=== PATIENT | female | born 1975 | race Two or more races ===

== ENCOUNTER → 2020-01-20 14:14 | Outpatient (BNVA) | payer BC, SELFPAY | PROVIDERS: PCP Internal Medicine; Visit Provider Orthopaedic Surgery | DX: Z76.89 Persons encountering health services in other specified circumstances (principal) ==

== ENCOUNTER 2020-01-20 14:15 | Outpatient (REF) | payer BC, SELFPAY ==
--- NOTE | 2020-01-20 14:16 | XR_ITS ---
EXAMINATION: XR AP STANDING VIEW BOTH KNEES. XR KNEE, RIGHT CLINICAL INFORMATION: Right knee pain COMPARISON: None TECHNIQUE: AP standing view both knees. Lateral and sunrise views of the right knee. FINDINGS: No joint space narrowing. No joint effusion. No fracture or focal osseous lesion. IMPRESSION: Unremarkable study.
== END 2020-01-20 14:16 | disposition home or self-care (01) ==
LOC: HO.XRAY 14:15
PROVIDERS: Visit Provider Orthopaedic Surgery
DX: S89.91XA Unspecified injury of right lower leg, initial encounter (principal)
CPT/HCPCS: 73560; 73565

== ENCOUNTER 2020-03-23 11:00 | Outpatient (RCR) | payer BC, SELFPAY ==
--- NOTE | 2020-03-02 12:39 | MHC.PT.EP ---
[facility] [place] Office [place] Office [place] Office [address] Luis Manuel Cobb [address] [phone] F: [phone] F: [phone] F: [phone] F: [phone] Physical Therapy Plan of Care Date of Evaluation: 03/02/20 Date of Surgery: NA Diagnosis: UNSPECIFIED INJURY OF R LOWER LEG Assessment: Pt IS 44 YO F REFERRED TO PT FROM DR PADILLA WITH R LE INJURY. Pt REPORTS HX OF R KNEE PROBLEMS (HAS HAD PT IN PAST WITH RELIEF) AND IN SEPTEMBER WAS MOVING A COUCH TO CLEAN BEHIND IT AND THEN USED KNEE TO TRY TO MOVE IT MAKE IN TO PLACE AND FELT LIKE KNEE STRAIGHTENED OUT ALL THE WAY CAUSING SIGNIFICANT PAIN. SWELLING INITIALLY. TO MD, RELIEF WITH ALLEVE AND ICE, SAW ORTHO (XRAY R KNEE NEG) AND REFERRED TO PT. PRESENTS WITH SXS CONSISTENT WITH MENISCAL INJURY. Pt WITH LIMITED ROM R KNEE, DECREASED STRENGTH (REPORTS AT TIME OF INIT INJURY UNABLE TO PERF SLR...WAS ABLE TO PERF TODAY DURING INIT EVAL.. Pt WITH TTP LAT JT LINE AND ITB WITH LAT TILT PATELLA NOTED. Pt WITHOUT LIMP WITH GT, BUT DOES HAVE PES PLANUS WITH GT AND PRONATION NOTED WITH SQUAT (DOES NOT WEAR ARCH SUPPORTS, BUT AWARE OF FLAT FEET . 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 Pt HAD STOPPED WORKING OUT BACK IN SEPTEMBER WHEN SHE INJURED HER KNEE, BUT RECENTLY STARTED WORKING OUT AGAIN. Pt SHOULD BENFIT FROM PT TO HELP DECREASE KNEE PAIN AND HELP IMPROVE OVERALL STRENGTH, ROM AND FUNCTIONAL MOBILITY. Frequency and Duration: The patient will be seen 2X/WK THIS FIRST WEEK THEN TO TRY 1X/WK (35 DOLLAR COPAY) Short Term Goals: INCREASED R KNEE ROM 0-120 INCREASED AWARENESS KNEE CARE Pt TO USE KT/ARCH SUPPORTS WITH RELIEF Care Home Goals: I HEP WITH DC EX PLAN DECREASED R KNEE PAIN AT LEAST 50% WITH ADLS IMPROVED LEFI Treatment Plan: Modalities to reduce pain, spasms and effusion. Manual therapy to restore motion and function. Therapeutic exercise to improve strength and flexibility. Neuromuscular re-education for posture and balance. Therapeutic activities to return to functional activities of daily living. Please sign and return to therapist. Thank you for your referral.
--- NOTE | 2020-03-02 12:40 | MHC.PT.EP ---
[facility] [place] Office [place] Office [place] Office [address] Luis Manuel Cobb [address] [phone] F: [phone] F: [phone] F: [phone] F: [phone] Physical Therapy Plan of Care Date of Evaluation: 03/02/20 Date of Surgery: NA Diagnosis: UNSPECIFIED INJURY OF R LOWER LEG Assessment: Pt IS 44 YO F REFERRED TO PT FROM DR PADILLA WITH R LE INJURY. Pt REPORTS HX OF R KNEE PROBLEMS (HAS HAD PT IN PAST WITH RELIEF) AND IN SEPTEMBER WAS MOVING A COUCH TO CLEAN BEHIND IT AND THEN USED KNEE TO TRY TO MOVE IT MAKE IN TO PLACE AND FELT LIKE KNEE STRAIGHTENED OUT ALL THE WAY CAUSING SIGNIFICANT PAIN. SWELLING INITIALLY. TO MD, RELIEF WITH ALLEVE AND ICE, SAW ORTHO (XRAY R KNEE NEG) AND REFERRED TO PT. PRESENTS WITH SXS CONSISTENT WITH MENISCAL INJURY. Pt WITH LIMITED ROM R KNEE, DECREASED STRENGTH (REPORTS AT TIME OF INIT INJURY UNABLE TO PERF SLR...WAS ABLE TO PERF TODAY DURING INIT EVAL.. Pt WITH TTP LAT JT LINE AND ITB WITH LAT TILT PATELLA NOTED. Pt WITHOUT LIMP WITH GT, BUT DOES HAVE PES PLANUS WITH GT AND PRONATION NOTED WITH SQUAT (DOES NOT WEAR ARCH SUPPORTS, BUT AWARE OF FLAT FEET . 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 Pt HAD STOPPED WORKING OUT BACK IN SEPTEMBER WHEN SHE INJURED HER KNEE, BUT RECENTLY STARTED WORKING OUT AGAIN. Pt SHOULD BENFIT FROM PT TO HELP DECREASE KNEE PAIN AND HELP IMPROVE OVERALL STRENGTH, ROM AND FUNCTIONAL MOBILITY. Frequency and Duration: The patient will be seen 2X/WK THIS FIRST WEEK THEN TO TRY 1X/WK (35 DOLLAR COPAY) Short Term Goals: INCREASED R KNEE ROM 0-120 INCREASED AWARENESS KNEE CARE Pt TO USE KT/ARCH SUPPORTS WITH RELIEF Nursing Home Goals: I HEP WITH DC EX PLAN DECREASED R KNEE PAIN AT LEAST 50% WITH ADLS IMPROVED LEFI Treatment Plan: Modalities to reduce pain, spasms and effusion. Manual therapy to restore motion and function. Therapeutic exercise to improve strength and flexibility. Neuromuscular re-education for posture and balance. Therapeutic activities to return to functional activities of daily living. Please sign and return to therapist. Thank you for your referral.
== END 2020-05-11 15:29 | disposition other institution (70) ==
LOC: HO.PTWFD 11:00
PROVIDERS: Visit Provider Orthopaedic Surgery
DX: S89.91XD Unspecified injury of right lower leg, subsequent encounter (principal)
CPT/HCPCS: 97110; 97140; 97161; 97530

== ENCOUNTER 2022-01-25 13:04 | Outpatient (REF) | payer BC, SELFPAY ==
[2022-01-25 13:55] LABS: Appearance Urine Clear; Color Urine Yellow; Glucose Urine UA Negative (Negative); Leukocyte Esterase Urine Moderate (2+) (Negative); Nitrite Urine Negative (Negative); Specific Gravity - Urine 1.015 (1.005-1.025); UMIC TRIGGER UACC YES; Urine Blood Moderate (2+) (Negative); Urine Ketones Negative (Negative); Urine Protein Negative (Neg-Trace)
[2022-01-25 14:08] LABS: Bacteria Urine Trace (None Seen); Hyaline Casts Urine 0-2 /LPF (0-2); RBC Urine >20 /HPF (0-2); UACC Culture Trigger YES; WBC Urine >50 /HPF (0-5)
== END 2022-01-25 13:05 | disposition home or self-care (01) ==
LOC: HO.LAB 13:04
PROVIDERS: PCP Internal Medicine; Visit Provider Internal Medicine
DX: R30.0 Dysuria (principal)
CPT/HCPCS: 81001; 87086; 87088; 87186

== ENCOUNTER 2022-04-17 12:38 | Outpatient (REF) | payer BC, SELFPAY ==
[2022-04-17 13:40] LABS: Estimated Average Glucose 97 mg/dL
[2022-04-17 14:56] LABS: Anion Gap 11 (12-20); Blood Urea Nitrogen 12 mg/dL (9-16); Calcium 9.4 mg/dL (8.4-10.2); Carbon Dioxide 26 mmol/L (22-29); Chloride 105 mmol/L (96-108); Estimated Glomerular Filt Rate > 60; Glucose Random 87 mg/dL (60-115); Potassium 4.3 mmol/L (3.3-5.1); Sodium 138 mmol/L (135-145)
== END 2022-04-17 12:39 | disposition home or self-care (01) ==
LOC: HO.LAB 12:38
PROVIDERS: PCP Internal Medicine; Visit Provider Internal Medicine
DX: Z13.89 Encounter for screening for other disorder (principal)
CPT/HCPCS: 36415; 80048; 83036

== ENCOUNTER 2022-07-16 14:18 | Outpatient (REF) | payer BC, SELFPAY ==
[2022-07-16 14:47] LABS: Appearance Urine Clear; Color Urine Yellow; Glucose Urine UA Negative (Negative); Leukocyte Esterase Urine Negative (Negative); Nitrite Urine Negative (Negative); PH 5.5 (5.0-9.0); Urine Blood Negative (Negative); Urine Ketones Negative (Negative); Urine Protein Negative (Neg-Trace)
== END 2022-07-16 14:19 | disposition home or self-care (01) ==
LOC: HO.LAB 14:18
PROVIDERS: PCP Internal Medicine; Visit Provider Internal Medicine
DX: R30.0 Dysuria (principal)
CPT/HCPCS: 81003; 87086; 87147

== ENCOUNTER 2022-12-13 15:01 | Outpatient (REF) | payer BC, SELFPAY ==
[2022-12-13 15:21] LABS: MANUAL DIFF FLAG NO
[2022-12-13 15:54] LABS: Basophils Percent Auto 0.5 % (0-2); Eosinophils Absolute Auto 0.1 X10*3/uL (0.0-0.4); Eosinophils Percent Auto 1.7 % (0-4); Hematocrit 39.9 % (37.0-47.0); Hemoglobin 12.8 g/dl (12.0-16.0); Imm Gran Abs Auto 0.02 X10*3/uL (0.00-0.03); Imm Gran Pct Auto 0.3 % (0.0-0.4); Lymphocytes Absolute Auto 1.7 X10*3/uL (1.2-4.9); Lymphocytes Percent Auto 27.5 % (20-40); Mean Corpuscular HGB Conc 32.1 g/dl (31.0-35.0); Mean Corpuscular Hemoglobin 29.5 pg (27.0-33.0); Mean Corpuscular Volume 91.9 fL (80.0-98.0); Mean Platelet Volume 10.2 fL (9.4-12.3); Monocytes Absolute Auto 0.4 X10*3/uL (0.1-1.2); Monocytes Percent Auto 7.2 % (2-11); Neutrophils Absolute Auto 3.8 x10*3/uL (2.0-8.3); Neutrophils Percent Auto 62.8 % (45-73); Platelet Count 235 X10*3/uL (160-400); Red Blood Count 4.34 X10*6/uL (4.20-5.50); Red Cell Distribution Width 13.4 % (11.0-16.0)
[2022-12-13 16:31] LABS: Erythrocyte Sedimentation Rate 16 MM/HR (0-20)
[2022-12-13 17:19] LABS: Alanine Aminotransferase 16 U/L (0-31); Albumin Level 3.6 g/dL (3.5-5.0); Alkaline Phosphatase 57 U/L (39-117); Anion Gap 13 (12-20); Aspartate Amino Transferase 16 U/L (5-31); Bilirubin Total 0.3 mg/dL (0.0-1.0); Blood Urea Nitrogen 17 mg/dL (9-16); C Reactive Protein 0.56 mg/dL (< or = 0.50); Calcium 9.4 mg/dL (8.4-10.2); Carbon Dioxide 23 mmol/L (22-29); Chloride 106 mmol/L (96-108); Estimated Glomerular Filt Rate > 60; Glucose Random 79 mg/dL (60-115); Potassium 4.2 mmol/L (3.3-5.1); Sodium 138 mmol/L (135-145); Total Protein 6.9 g/dL (6.5-8.0)
[2022-12-13 17:35] LABS: Free T4 (Free Thyroxine) 1.01 ng/dL (0.71-1.85); Thyroid Stimulating Hormone 0.83 uIU/mL (0.32-4.0)
== END 2022-12-13 15:02 | disposition home or self-care (01) ==
LOC: HO.LAB 15:01
PROVIDERS: PCP Internal Medicine; Visit Provider Internal Medicine
DX: R21 Rash and other nonspecific skin eruption (principal); R63.5 Abnormal weight gain
CPT/HCPCS: 36415; 80053; 84439; 84443; 85025; 85652; 86140

== ENCOUNTER 2023-06-10 16:50 | Outpatient (REF) | payer BC, SELFPAY ==
--- NOTE | ~2023-06-10 | US_ITS ---
EXAMINATION: US VENOUS ULTRASOUND WITH DOPPLER LOWER EXTREMITY, BILATERAL CLINICAL INFORMATION: Bilateral lower extremity edema and pain. COMPARISON: None available. TECHNIQUE: Ultrasound of the deep veins is performed from the hip to the calf with compression sonography and color and pulse Doppler assessment. Spectral analysis with color-flow imaging is performed. FINDINGS: RIGHT: There is normal venous compression and respiratory variation and augmented flow. The visualized common femoral vein, superficial femoral vein, profunda femoral vein, popliteal vein, and the trifurcation region shows no evidence of deep venous thrombosis. There is no significant popliteal fossa cyst. LEFT: There is normal venous compression and respiratory variation and augmented flow. The visualized common femoral vein, superficial femoral vein, profunda femoral vein, popliteal vein, and the trifurcation region shows no evidence of deep venous thrombosis. There is no significant popliteal fossa cyst. US/US venous duplex LE BI IMPRESSION: No DVT demonstrated in the bilateral lower extremities. If the patient's symptoms persist, followup ultrasound in 5 days 7 days might be of value to exclude proximal propagation from a non-visualized calf vein.
[2023-06-10 17:04] LABS: MANUAL DIFF FLAG NO
[2023-06-10 17:18] LABS: Basophils Percent Auto 0.4 % (0-2); Eosinophils Absolute Auto 0.1 X10*3/uL (0.0-0.4); Eosinophils Percent Auto 1.6 % (0-4); Hemoglobin 13.3 g/dl (12.0-16.0); Imm Gran Abs Auto 0.02 X10*3/uL (0.00-0.03); Imm Gran Pct Auto 0.3 % (0.0-0.4); Lymphocytes Absolute Auto 1.9 X10*3/uL (1.2-4.9); Lymphocytes Percent Auto 28.5 % (20-40); Mean Corpuscular HGB Conc 33.3 g/dl (31.0-35.0); Mean Corpuscular Hemoglobin 29.8 pg (27.0-33.0); Mean Corpuscular Volume 89.7 fL (80.0-98.0); Mean Platelet Volume 9.8 fL (9.4-12.3); Monocytes Absolute Auto 0.5 X10*3/uL (0.1-1.2); Neutrophils Absolute Auto 4.2 x10*3/uL (2.0-8.3); Neutrophils Percent Auto 62.2 % (45-73); Platelet Count 285 X10*3/uL (160-400); Red Blood Count 4.46 X10*6/uL (4.20-5.50); Red Cell Distribution Width 13.3 % (11.0-16.0); White Blood Count 6.7 X10*3/uL (4.8-10.8)
[2023-06-10 17:38] LABS: D Dimer High Sensitivity < 150 NG/ML
[2023-06-10 17:46] LABS: Anion Gap 12 (12-20); Blood Urea Nitrogen 12 mg/dL (9-16); C Reactive Protein 0.49 mg/dL (< or = 0.50); Carbon Dioxide 25 mmol/L (22-29); Chloride 105 mmol/L (96-108); Estimated Glomerular Filt Rate > 60; Glucose Random 100 mg/dL (60-115); Sodium 138 mmol/L (135-145)
[2023-06-10 18:03] LABS: Free T4 (Free Thyroxine) 0.99 ng/dL (0.71-1.85); Thyroid Stimulating Hormone 0.91 uIU/mL (0.32-4.0)
== END 2023-06-10 16:51 | disposition home or self-care (01) ==
LOC: HO.US 16:50
PROVIDERS: PCP Internal Medicine; Visit Provider Internal Medicine
DX: R60.9 Edema, unspecified (principal); M79.605 Pain in left leg; M79.604 Pain in right leg
CPT/HCPCS: 36415; 80048; 82550; 84439; 84443; 85025; 85379; 86140; 93970

== ENCOUNTER 2023-07-03 15:01 | Outpatient (AMB) | payer BC, SELFPAY ==
--- NOTE | 2023-07-03 14:59 | A.OFFVIS_ITS ---
Intake Vital Signs 07/03/23 15:11 Height 5 ft 4 in Weight 267 lb BMI 45.8 BP 142/72 H Blood Pressure Location Lt brachial Position Sitting Pulse 82 Pulse Source Pulse Oximeter Pulse Oximetry (%) 98 Oxygen Delivery Method Room Air Intake Visit Reasons: eval for sleep apnea [employer] Assistant Manager Required: No Jockey Agent: Jockey Agent offered & declined Accompanied by: Self / Same As Patient Allergies penicillin G [Penicillin G] Allergy (Unknown, Verified 07/03/23 15:16) RASH penicillin V Allergy (Unknown, Verified 07/03/23 15:16) unknown levoquin Allergy (Uncoded 07/03/23 15:16) felt terrrible difficulty breathing Medication List - Last Reconciled 07/03/23 by Juana Cordova LPN diphenhydramine HCl (Benadryl Allergy) 100 mg PO BEDTIME PRN naproxen (Naprosyn) 500 mg PO BID propranolol ER 60 mg PO DAILY HPI eval for sleep apnea HPI Details Taty is a pleasant 47 year old female, never smoker, with underlying asthma, HTN and migraines. She was referred by PCP for pulmonary evaluation. She reports symptoms loud snoring, daytime fatigue, proximal nocturnal dyspnea and occasional morning headaches. She had a sleep study years ago which revealed obstructive sleep apnea however she lost a significant amount of weight and symptoms resolved. Unfortunately, patient has gained all of her weight back, approximately 40 lb, with return of symptoms. She reports mild intermittent asthma. She reports mother with sleep apnea. She denies any respiratory symptoms today. [facility] Medical History (Updated 07/03/23 @ 19:25 by Amie Rodrigez NP) Connective tissue disease Migraine Kidney stone HTN (hypertension) History of endometriosis Surgical History (Updated 01/14/20 @ 15:41 by Isa Littlejohn PA-C) History of cholecystectomy S/P right knee arthroscopy Family History (Updated 01/14/20 @ 15:42 by Isa Littlejohn PA-C) Mother Kidney disease HTN (hypertension) Father No problems noted. 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 Review of Systems Const Denies chills, Denies excessive sweating, Denies fever(s), Denies headache(s) and Denies night sweats Eyes Denies dry eyes, Denies irritation and Denies itchy eyes ENT Reports Normal hearing present, Denies headache(s), Denies nasal congestion, Denies nasal discharge, Denies post nasal drip and Denies sore throat Card Denies chest pain, Denies chest pain at rest, Denies chest pain with activity, Denies claudication, Denies leg edema, Denies dyspnea, Denies dyspnea on exertion and Denies orthopnea Resp Denies chest congestion, Denies cough, Denies excessive phlegm production, Denies pain on inspiration, Denies pain with cough, Denies dyspnea, Denies dyspnea on exertion, Denies stridor and Denies wheezing Musc Denies myalgias Neuro Reports Normal hearing present and Denies headache(s) Endo Denies excessive sweating Tom/Lymph Denies lymphadenopathy Aller/Immun Denies itchy eyes, Denies seasonal rhinorrhea and Denies wheezing Physical Exam Vital Signs: Last Vital Signs Pulse 82 07/03/23 15:11 BP 142/72 H 07/03/23 15:11 Pulse Ox 98 07/03/23 15:11 Oxygen Delivery Method Room Air 07/03/23 15:11 BMI result Body Mass Index 45.8 Const General: cooperative, healthy appearing, comfortable, no acute distress, well developed and alert Nutritional Appearance: obese Orientation/consciousness: patient oriented x3 Limitations: no limitations HEENT Head: Yes normal to inspection, Yes normocephalic and Yes atraumatic Ears: hearing grossly normal bilaterally and external ears normal Eyes General: appearance normal, both eyes and all related structures Eyelids: Yes eyelids normal Sclerae: sclerae normal EOM: EOMs intact bilaterally Neck Neck: Yes normal visual inspection and Yes no lymphadenopathy Lymphatic: no lymphadenopathy noted Chest Chest palpation & inspection: normal inspection of the chest Resp Effort & Inspection: normal respiratory effort, able to speak in complete sentences, no audible wheezes, no cough, no stridor, not tachypneic, no tripod positioning and no use of accessory muscles Auscultation: clear to auscultation bilaterally Cardio Jugular venous distension: no JVD Rate: regular rate Rhythm: regular rhythm Skin Other: warm, dry General skin exam: no rashes or lesions noted Neuro General: patient oriented x3 Cranial nerves: Yes Normal hearing present Cognition (Neuro): normal cognition Gait exam (Neuro): Normal gait present Extrem General: Yes normal to inspection, Yes capillary refill normal, Yes no clubbing, cyanosis or edema and Yes no pedal edema Psych Appearance: grossly normal and well kempt Speech and movement: Normal speech and movement present and Clear speech present Affect: normal affect Attitude: cooperative Thought process: Normal thought process present Thought content: Normal thought content present Insight: Good insight present (Psych) Judgement: Good judgement present (Psych) Assessment & Plan Assessment & Plan (1) Loud snoring: Code(s): R06.83 - Snoring (2) Asthma: Code(s): J45.909 - Unspecified asthma, uncomplicated Plan Will send for home sleep study to evaluate for symptoms suggestive of obstructive sleep apnea. At this time, she denies any respiratory symptoms and feels her asthma is controlled. She is aware if respiratory symptoms change, we can further evaluate her asthma. Will follow-up to review results of sleep study. All questions were answered and patient is in agreement of plan. Orders: Orders RT home sleep study Today R06.83 - Snoring Coding Level of Care Code New Pt Level 3 (52834) Diagnoses Loud snoring R06.83 Asthma J45.909
[2023-07-03 15:11] VITALS: BP 142/72; PULSE 82; O2SAT 98; BMI 45.8
== END 2023-07-03 15:32 | disposition home or self-care (01) ==
PROVIDERS: PCP Internal Medicine; Referring Provider Internal Medicine; Visit Provider Nurse Practitioner Family
DX: R06.83 Snoring (principal); J45.909 Unspecified asthma, uncomplicated
CPT/HCPCS: 99203

== ENCOUNTER → 2023-07-03 15:01 | Outpatient (BNVA) | payer BC, SELFPAY | PROVIDERS: PCP Internal Medicine; Referring Provider Internal Medicine; Visit Provider Nurse Practitioner Family ==

== ENCOUNTER → 2023-11-04 08:07 | Outpatient (REF) | payer BC, SELFPAY | LOC: HO.SL 08:07 | PROVIDERS: PCP Internal Medicine; Visit Provider Nurse Practitioner Family | DX: G47.33 Obstructive sleep apnea (adult) (pediatric) (principal); R06.83 Snoring | CPT/HCPCS: 95806 ==

== ENCOUNTER → 2023-11-04 08:38 | Outpatient (BNV) | payer BC, SELFPAY | PROVIDERS: PCP Internal Medicine; Visit Provider Internal Medicine | DX: G47.33 Obstructive sleep apnea (adult) (pediatric) (principal) | CPT/HCPCS: 95806 ==

== ENCOUNTER 2023-11-29 10:49 | Outpatient (AMB) | payer BC, SELFPAY ==
--- NOTE | 2023-11-29 10:51 | MHC.OFFVIS ---
Vital Signs 11/29/23 10:52 Height 5 ft 4 in Weight 272 lb 2 oz BMI 46.7 BP 140/96 H Blood Pressure Location Rt brachial Position Sitting Pulse 70 Pulse Source Pulse Oximeter Pulse Oximetry (%) 95 Oxygen Delivery Method Room Air Intake Visit Reasons: Sleep apnea Allergies penicillin G [Penicillin G] Allergy (Unknown, Verified 11/29/23 10:54) RASH penicillin V Allergy (Unknown, Verified 11/29/23 10:54) unknown levoquin Allergy (Uncoded 11/29/23 10:54) felt terrrible difficulty breathing HPI HPI Sleep apnea: Details: Taty is a pleasant 47 year old female, never smoker, with underlying asthma, HTN and migraines. She reported symptoms loud snoring, daytime fatigue, proximal nocturnal dyspnea and occasional morning headaches and presents today to review home sleep study results. She denies any respiratory symptoms today. [facility] Medical History (Updated 11/29/23 @ 15:38 by Amie Rodrigez NP) Connective tissue disease Migraine Kidney stone HTN (hypertension) History of endometriosis Surgical History (Updated 01/14/20 @ 15:41 by Isa Littlejohn PA-C) History of cholecystectomy S/P right knee arthroscopy Family History (Updated 01/14/20 @ 15:42 by Isa Littlejohn PA-C) Mother Kidney disease HTN (hypertension) Father No problems noted. 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 Review of Systems Const Denies chills, Denies excessive sweating, Denies fever(s), Denies headache(s) and Denies night sweats Eyes Denies dry eyes, Denies irritation and Denies itchy eyes ENT Reports Normal hearing present, Denies headache(s), Denies nasal congestion, Denies nasal discharge, Denies post nasal drip and Denies sore throat Card Denies chest pain, Denies chest pain at rest, Denies chest pain with activity, Denies claudication, Denies leg edema, Denies dyspnea, Denies dyspnea on exertion and Denies orthopnea Resp Denies chest congestion, Denies cough, Denies excessive phlegm production, Denies pain on inspiration, Denies pain with cough, Denies dyspnea, Denies dyspnea on exertion, Denies stridor and Denies wheezing Musc Denies myalgias Neuro Reports Normal hearing present and Denies headache(s) Endo Denies excessive sweating Tom/Lymph Denies lymphadenopathy Aller/Immun Denies itchy eyes, Denies seasonal rhinorrhea and Denies wheezing Physical Exam Vital Signs: Last Vital Signs Pulse 70 11/29/23 10:52 BP 140/96 H 11/29/23 10:52 Pulse Ox 95 11/29/23 10:52 Oxygen Delivery Method Room Air 11/29/23 10:52 BMI result Body Mass Index 46.7 Const General: cooperative, healthy appearing, comfortable, no acute distress, well developed and alert Nutritional Appearance: obese Orientation/consciousness: patient oriented x3 Limitations: no limitations HEENT Head: Yes normal to inspection, Yes normocephalic and Yes atraumatic Ears: hearing grossly normal bilaterally and external ears normal Eyes General: appearance normal, both eyes and all related structures Eyelids: Yes eyelids normal Sclerae: sclerae normal EOM: EOMs intact bilaterally Neck Neck: Yes normal visual inspection and Yes no lymphadenopathy Lymphatic: no lymphadenopathy noted Chest Chest palpation & inspection: normal inspection of the chest Resp Effort & Inspection: normal respiratory effort, able to speak in complete sentences, no audible wheezes, no cough, no stridor, not tachypneic, no tripod positioning and no use of accessory muscles Auscultation: clear to auscultation bilaterally Cardio Jugular venous distension: no JVD Rate: regular rate Rhythm: regular rhythm Skin Other: warm, dry General skin exam: no rashes or lesions noted Neuro General: patient oriented x3 Cranial nerves: Yes Normal hearing present Cognition (Neuro): normal cognition Gait exam (Neuro): Normal gait present Extrem General: Yes normal to inspection, Yes capillary refill normal, Yes no clubbing, cyanosis or edema and Yes no pedal edema Psych Appearance: grossly normal and well kempt Speech and movement: Normal speech and movement present and Clear speech present Affect: normal affect Attitude: cooperative Thought process: Normal thought process present Thought content: Normal thought content present Insight: Good insight present (Psych) Judgement: Good judgement present (Psych) Assessment & Plan Assessment & Plan (1) Asthma: Code(s): J45.909 - Unspecified asthma, uncomplicated Category: Medical (2) Obstructive sleep apnea: Code(s): G47.33 - Obstructive sleep apnea (adult) (pediatric) Category: Medical Plan Reviewed sleep study results with patient which revealed an AHI of 9.5. Discussed conservative measures however since patient is quite symptomatic, will start CPAP therapy. Will send in prescription for APAP mode and pressure settings of 6-16 cm with close monitoring for compliance and benefits. Sleep hygiene education reviewed. She is aware if there are any issues with the mask or CPAP machine, she will call the office. All questions were answered and patient is in agreement of plan. Will follow up in 8 weeks. Coding Level of Care Code Est Pt Level 3 (64407) Diagnoses Asthma J45.909 Obstructive sleep apnea G47.33
[2023-11-29 10:52] VITALS: BP 140/96; PULSE 70; O2SAT 95; BMI 46.7
== END 2023-11-29 11:11 | disposition home or self-care (01) ==
PROVIDERS: PCP Internal Medicine; Visit Provider Nurse Practitioner Family
DX: J45.909 Unspecified asthma, uncomplicated (principal); G47.33 Obstructive sleep apnea (adult) (pediatric)
CPT/HCPCS: 99213

== ENCOUNTER → 2023-11-29 10:49 | Outpatient (BNVA) | payer BC, SELFPAY | PROVIDERS: PCP Internal Medicine; Visit Provider Nurse Practitioner Family ==

== ENCOUNTER 2024-05-13 06:18 | Day surgery (SDC) | payer BC, SELFPAY ==
[2023-10-03 06:51] VITALS: BMI 46.3
--- NOTE | 2024-05-12 08:20 | HO.ANESPROP2 ---
Documented by User: Beatriz Foley NP 05/12/24 08:22 HPI - Anesthesia Eval Consult details Narrative: 48yo F for Colonoscopy BMI 46 PMFSH Active Problems Active Problems: All Active Problems Obstructive sleep apnea (Acute) Asthma (Acute) Loud snoring (Acute) Soft tissue injury of right knee (Acute) Past Medical History Medical History (Updated 11/29/23 @ 15:38 by Amie Rodrigez NP) Connective tissue disease Migraine Kidney stone HTN (hypertension) History of endometriosis Family History Family History (Updated 01/14/20 @ 15:42 by Isa Littlejohn PA-C) Mother Kidney disease HTN (hypertension) Father No problems noted. 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 Meds Allergies Allergy/AdvReac Type Severity Reaction Status Date / Time penicillin G [Penicillin G] Allergy Unknown RASH Verified 11/29/23 10:54 penicillin V Allergy Unknown Rash Verified 05/13/24 06:51 levoquin Allergy felt Uncoded 11/29/23 10:54 terrrible difficulty breathing Home Medications ?Medication ?Instructions ?Recorded ?Confirmed ?Last Taken ?Type propranolol 60 mg capsule,24 60 mg PO DAILY 01/14/20 10/03/23 05/13/24 History hr,extended release diphenhydramine HCl 50 mg tablet 100 mg PO BEDTIME PRN Insomnia 07/03/23 10/03/23 Unknown History (Benadryl Allergy) magnesium oxide 300 mg PO DAILY 10/03/23 10/03/23 Unknown History Exam Height,Weight and Vital Signs: Height 5 ft 4 in Weight 122.47 kg Assessment and Plan Assessment Anesthesia Assessment: Chart Reviewed Documented by User: Arjun Lema MD 05/13/24 07:36 [facility] Past Medical History Medical History (Updated 11/29/23 @ 15:38 by Amie Rodrigez NP) Connective tissue disease Migraine Kidney stone HTN (hypertension) History of endometriosis Patient : No Family History Family History (Updated 01/14/20 @ 15:42 by Isa Littlejohn PA-C) Mother Kidney disease HTN (hypertension) Father No problems noted. 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 Allergies Allergy/AdvReac Type Severity Reaction Status Date / Time penicillin G [Penicillin G] Allergy Unknown RASH Verified 11/29/23 10:54 penicillin V Allergy Unknown Rash Verified 05/13/24 06:51 levoquin Allergy felt Uncoded 11/29/23 10:54 terrrible difficulty breathing Home Medications ?Medication ?Instructions ?Recorded ?Confirmed ?Last Taken ?Type propranolol 60 mg capsule,24 60 mg PO DAILY 01/14/20 10/03/23 05/13/24 History hr,extended release diphenhydramine HCl 50 mg tablet 100 mg PO BEDTIME PRN Insomnia 07/03/23 10/03/23 Unknown History (Benadryl Allergy) magnesium oxide 300 mg PO DAILY 10/03/23 10/03/23 Unknown History Exam Airway Mallampati Class: II TM Dist: <=3cm Neck ROM: Full Loose/Missing/Broken Teeth: No Heart: ok Lungs: ok Assessment and Plan Assessment Anesthesia Assessment: Anesthesia Plan Discussed Final Anesthetic Review Family History of Problems with Anesthesia: No History of Problems with Anesthesia: No NPO: Yes ASA Class: III Final Preanesthetic Review: No Changes in Pt Med Stat, Meds/Allgs Chart Reviewed, Consent Obtained/Reviewed and Anes Risks/Benef Reviewed Patient Risk: Intermediate Procedure Risk: Low Anesthetic Plan Anesthetic Plan: MAC: and Agree w/ Assess. and Plan Disposition: Standard PACU
--- OUTSIDE RECORDS SUMMARY | 2024-05-13 06:20 | XMS_ITS ---
Author Organization [facility] Address [address] [place] [address] Care Team Providers Care Flexible Nanny Name Role Phone Asif Fay MD Primary Care Provider Unavaila Victor Manuel Recio Unavailable [phone] REASON FOR VISIT COLON SCREENING Encounters Encounter Location Date Provider Diagnosis [facility] [place] [address] [place] [phone] 05/13/2024 Victor Manuel Balderas PLAN OF TREATMENT Next Appt Details Provider Name:Victor Manuel Balderas , 05/13/2024 07:30:00 AM, [address] [place] [address], [phone],
--- OUTSIDE RECORDS SUMMARY | 2024-05-13 06:21 | XMS_ITS ---
Author Organization [facility] Address [address] [place] [address] Care Team Providers Care Manager Forensic Name Role Phone Asif Fay MD Primary Care Provider Unavaila Victor Manuel Recio Unavailable [phone] REASON FOR VISIT colon screening Encounters Encounter Location Date Provider Diagnosis [facility] [place] [address] [place] [phone] 01/22/2024 Victor Manuel Balderas PLAN OF TREATMENT Next Appt Details Provider Name:Victor Manuel Balderas , 05/13/2024 07:30:00 AM, [address] [place] [address], [phone],
--- OUTSIDE RECORDS SUMMARY | 2024-05-13 06:21 | XMS_ITS | Patient Health Record ---
Author Organization [facility] Address [address] [place] [address] Care Team Providers Care Senior Net Programmer Name Role Phone Asif Fay MD Primary Care Provider Victor Manuel Vega [phone] ALLERGIES Allergen (clinical drug ingredient) Drug/Non Drug Allergy documented on EMR Reaction Allergy Type Onset Date Status Penicillin Unknown Drug Allergy Active Levaquin Unknown Drug Allergy Active REASON FOR REFERRAL No Information MEDICATIONS Medication SIG (Take, Route, Frequency, Duration) Notes Start Date End Date Status Benadryl Allergy 25 MG 1 tablet at bedti me as needed Orally Once a day Active Magnesium 300 MG 1 capsule with a maryjane l Orally Once a day for 30 day(s) Active Propranolol HCl ER 60 MG TAKE 1 CAPSULE BY MOUTH EVERY DAY Oral for 30 Active IMMUNIZATIONS Vaccine Route Administration Date Status Comme nts Influenza Unknown 07/26/2023 Refused SOCIAL HISTORY Tobacco Use: Social History Observation Description Date Details (start date - stop date) Never Smoker NA - NA Sex Assigned At : Social History Observation Description Sex Assigned At Unknown Tobacco Use/Smoking Question Answer Notes Patient is a nonsmoker Alcohol Screen Question Answer Notes Did you have a drink contain ing alcohol in the past year? Yes How often did you have a dri nk containing alcohol in the past year? 2 to 4 times a month (2 points) How many drinks did you have on a typical day when you were drinking in the past year? 1 or 2 drinks (0 point) How often did you have 6 or more drinks on one occasion in the past year? Never (0 point) Points 2 Interpretation Negative PROBLEMS Problem Type ICD Code Onset Dates Problem Status W/U Status Risk SNOMED Code Notes Problem Encounter for screening for malignant neoplasm of colon (Z12.11) Active confirmed Screening for malignant neoplasm of colon (515772239) Problem Preprocedural examination (Z01.818) Active confirmed Preprocedural examination (187496923669279 ) VITAL SIGNS Temperature 98.6 degrees Fahrenheit 07/26/2023 Blood pressure diastolic 00 mm Hg 07/26/2023 Height 5 ft 4 in in 07/26/2023 Blood pressure systolic 000 mm Hg 07/26/2023 Weight 270 lb 4 oz lbs 07/26/2023 BMI 46.38 kg/m2 07/26/2023 Encounters Encounter Location Date Provider Diagnosis [facility] [place] [address] [place] [id number] 10/04/2023 Victor Manuel Balderas [facility] [place] [address] [place] [id number] 01/22/2024 Victor Manuel Balderas [facility] [place] [address] [place] [id number] 05/13/2024 Victor Manuel Balderas [facility] [address] [place] [phone] 07/26/2023 Victor Manuel Balderas Encounter for screening for malignant neoplasm of colon Z12.11 and Preprocedural examination Z01.818 [facility] [address] [place] [phone] 01/20/2024 Victor Manuel Balderas ASSESSMENTS Encounter Date Diagnosis Assessment Notes Treatment Notes Treatment Clinical Notes 07/26/2023 Encounter for screening for malignant neoplasm of colon (ICD-10 - Z12.11) 07/26/2023 Preprocedural examination (ICD-10 - Z01.818) PLAN OF TREATMENT Future Test Test Name Order Date COLONOSCOPY 08/04/2023 Next Appt Details Provider Name:Victor Manuel Balderas , 05/13/2024 07:30:00 AM, [address] [place] [address], [id number], Insurance Providers Payer Name Payer Address Payer Phone Subscriber Number Group Number Insured Name Patient Relationship to Insured Coverage Start Date Coverage End Date [facility] [address] [place] [address] [id number] [place] Self - patient is the insured MEDICAL (GENERAL) HISTORY Medical History History ICD Code HTN Migraines Being tested for sleep apnea at the end of 07/2023 Denies [place],DM,CVA,Lung disease,renal dise ase Surgical History Surgery Date(Month/Year) [facility] Right knee arthroscopy
[2024-05-13 06:52] VITALS: BMI 47.9
[2024-05-13 07:05] VITALS: BP 128/78; PULSE 71; RESP 16; TEMP 36.8; O2SAT 99
[2024-05-13 07:15] LABS: UPreg QC Valid YES; Urine Pregnancy NEGATIVE (NEGATIVE)
[2024-05-13] MEDS: Lactated Ringers 1,000 ML 100 ML IVCONT (07:17)
[2024-05-13 08:19] VITALS: BP 119/62; PULSE 57; RESP 18; TEMP 36.4; O2SAT 100
--- NOTE | 2024-05-13 08:19 | P.BOP_ITS ---
Brief Operative Note Date of Service: 05/13/24 Pre-op diagnosis: Screening Post-op diagnosis: other (Polyp) Procedure: Colonoscopy to the cecum and TI with bx/removal of polyp Surgeon: Victor Manuel Balderas MD Anesthesia: MAC Was an State Game Protector used for this Procedure?: No Estimated blood loss (mL): 2.0 Pathology: other (A. Ascending colon polyp) Condition: stable Disposition: PACU
[2024-05-13 08:34] VITALS: BP 132/82; PULSE 59; RESP 16; TEMP 36.3; O2SAT 100
--- NOTE | 2024-05-13 08:45 | OP_ITS ---
DATE OF SERVICE: 05/13/2024 SURGEON: Victor Manuel Balderas MD INDICATIONS: The patient presents for evaluation of colorectal cancer screening. Full consent was obtained from her for this, including risks of bleeding and perforation. PREOPERATIVE DIAGNOSIS: Colorectal cancer screening. POSTOPERATIVE DIAGNOSIS: PROCEDURE PERFORMED: Colonoscopy to cecum and terminal ileum with biopsy removal of polyp. ESTIMATED BLOOD LOSS: COMPLICATIONS: ANESTHESIA: Medication used: Monitored anesthesia care. ASSISTANTS: SPECIMENS: POSTOPERATIVE DIAGNOSES: Colorectal cancer screening, small colon polyp, mild diverticulosis, small internal hemorrhoids. DESCRIPTION OF PROCEDURE: The patient was placed in the left lateral decubitus position. The digital rectal exam revealed no abnormalities. The Olympus video pediatric colonoscope was entered into the rectum and advanced easily to the cecum. Once in the cecum, I did identify normal-appearing cecal pouch with appendiceal orifice and a normal-appearing ileocecal valve. The terminal ileum was cannulated and appeared normal. The scope was withdrawn back in the colon. The entire cecum and ileocecal valve appeared normal. The scope was slowly withdrawn assessing all mucosal surfaces carefully. Preparation was excellent. In the proximal ascending colon, was a less than 5 mm polyp, which was biopsied and completely removed with cold biopsy forceps. I did not visualize any other polyps, colitis, nor angiodysplasia. There was a mild amount of sigmoid diverticulosis. In the rectum, scope was retroflexed visualizing internal hemorrhoids, but no other pathology. The rectal mucosa appeared normal. The scope was straightened and withdrawn from the patient. She tolerated the procedure well and was returned to the recovery area in stable condition. IMPRESSION: 1. Small colon polyp. 2. Mild diverticulosis. 3. Small internal hemorrhoids. PLAN: The results of the pathology will be checked. If this is a tubular adenoma, she should have a repeat colonoscopy in 5 years for surveillance. If it is only hyperplastic, I would recommend a repeat colonoscopy in 10 years. She will otherwise see me on a p.r.n. basis. MD FELIPE Hogan/STEFFANIE / [phone]
== END 2024-05-13 08:48 | disposition home or self-care (01) ==
PROVIDERS: Nurse Practitioner; PCP Internal Medicine; Visit Provider Internal Medicine
PROC: 0DJD8ZZ Inspection of Lower Intestinal Tract, Via Natural or Artificial Opening Endoscopic (ICD-10-PCS; CPT 45378; principal; 2024-05-13 07:30)
DX: Z12.11 Encounter for screening for malignant neoplasm of colon (principal); Z83.719 Family history of colon polyps, unspecified; K51.40 Inflammatory polyps of colon without complications; K57.30 Diverticulosis of large intestine without perforation or abscess without bleeding; K64.8 Other hemorrhoids; I10 Essential (primary) hypertension; G43.909 Migraine, unspecified, not intractable, without status migrainosus; Z79.899 Other long term (current) drug therapy; Z88.0 Allergy status to penicillin; Z88.1 Allergy status to other antibiotic agents
CPT/HCPCS: 45380; 81025; 88305; J2003; J2704

== ENCOUNTER 2024-06-16 15:04 | Outpatient (REF) | payer BC, SELFPAY ==
[2024-06-16 15:47] LABS: Urine Cytology See Pathology rpt
[2024-06-16 15:55] LABS: Appearance Urine Clear; Color Urine Yellow; Glucose Urine UA Negative (Negative); Leukocyte Esterase Urine Negative (Negative); Nitrite Urine Negative (Negative); PH 6.5 (5.0-9.0); UMIC TRIGGER UACC YES; Urine Blood Moderate (2+) (Negative); Urine Ketones Negative (Negative); Urine Protein Negative (Neg-Trace)
[2024-06-16 16:01] LABS: Bacteria Urine None Seen (None Seen); Hyaline Casts Urine 0-2 /LPF (0-2); Squamous Epithelial Cell Urine 0-2 /HPF (0-2); WBC Urine 0-5 /HPF (0-5)
--- OUTSIDE RECORDS SUMMARY | 2024-06-16 19:07 | XMS_ITS ---
Author Organization [facility] Address [address] [place] [address] Care Team Providers Care Residential Therapist Name Role Phone Asif Fay MD Primary Care Provider Unavaila Victor Manuel Recio Unavailable [phone] REASON FOR VISIT cancelled procedure Encounters Encounter Location Date Provider Diagnosis [facility] [address] [place] [phone] 01/20/2024 Victor Manuel Balderas PLAN OF TREATMENT No Information
--- OUTSIDE RECORDS SUMMARY | 2024-06-16 19:07 | XMS_ITS ---
Author Organization [facility] Address [address] [place] [address] Care Team Providers Care Cap Blocker Name Role Phone Asif Fay MD Primary Care Provider Unavaila Victor Manuel Recio Unavailable [phone] REASON FOR VISIT COLON SCREENING PROBLEMS Problem Type ICD Code Onset Dates Problem Status W/U Status Risk SNOMED Code Notes Problem Diverticulosis of large intestine without perforation or abscess without bleeding (K57.30) Active confirmed Diverticul ar disease of colon (094965786) Encounters Encounter Location Date Provider Diagnosis [facility] [place] [address] [place], [place] [phone] 05/13/2024 Victor Manuel Balderas Colon cancer scree bita Z12.11 ; Colon polyps K63.5 and Diverticulosis of large intestine without perforation or abscess without bleeding K57.30 ASSESSMENTS Encounter Date Diagnosis Assessment Notes Treatment Notes Treatment Clinical Notes 05/13/2024 Colon cancer screening (ICD-10 - Z12.11) 05/13/2024 Colon polyps (ICD-10 - K63.5) 05/13/2024 Diverticulosis of large intestine without perforation or abscess without bleeding (ICD-10 - K57.30) PLAN OF TREATMENT No Information
--- OUTSIDE RECORDS SUMMARY | 2024-06-16 19:08 | XMS_ITS | Patient Health Record ---
Author Organization [facility] Address [address] [place] [address] Care Team Providers Care Auto Claim Representative Name Role Phone Asif Fay MD Primary Care Provider Victor Manuel Vega [phone] ALLERGIES Allergen (clinical drug ingredient) Drug/Non Drug Allergy documented on EMR Reaction Allergy Type Onset Date Status Penicillin Unknown Drug Allergy Active Levaquin Unknown Drug Allergy Active RESULTS Component Value Reference Range Notes Pathology (Not yet reviewed by provider) Interpretation: Performing Lab:[facility], [address] [place] [phone] Notes/Report: Ur Preg Test Reviewed date:05/13/2024 01:01:15 PM Interpretation: Performing Lab:[facility], [address] [place] [phone] Notes/Report: Urine NEGATIVE NEGATIVE This test was developed to detect early . False negative results may occur after the 5th - 7th week of when using this test method. If clinically indicated, consider a serum hCG. REASON FOR REFERRAL No Information MEDICATIONS Medication [...] confirmed Screening for malignant neoplasm of colon (088464141) Problem Diverticulosis of large intestine without perforation or abscess without bleeding (K57.30) Active confirmed Diverticul ar disease of colon (150727503) Problem Preprocedural examination (Z01.818) Active confirmed Preprocedural examination (286746395738376 ) VITAL SIGNS Temperature 98.6 degrees Fahrenheit 07/26/2023 Blood pressure diastolic 00 mm Hg 07/26/2023 Height 5 ft 4 in in 07/26/2023 Blood pressure systolic 000 mm Hg 07/26/2023 Weight 270 lb 4 oz lbs 07/26/2023 BMI 46.38 kg/m2 07/26/2023 Encounters Encounter Location Date Provider Diagnosis [facility] [place] [address] [place], [place] [id number] 10/04/2023 Victor Manuel Balderas [facility] [place] [address] [place], [place] [id number] 01/22/2024 Victor Manuel Balderas [facility] [place] [address] [place], [place] [id number] 05/13/2024 Victor Manuel Balderas Colon cancer screeni ng Z12.11 ; Colon polyps K63.5 and Diverticulosis of large intestine without perforation or abscess without bleeding K57.30 [facility] [address] [place] [phone] 07/26/2023 Victor Manuel Balderas Encounter for screen ing for malignant neoplasm of colon Z12.11 and Preprocedural examination Z01.818 [facility] [address] [place] [id number] 01/20/2024 Victor Manuel Balderas ASSESSMENTS Encounter Date Diagnosis Assessment Notes Treatment Notes Treatment Clinical Notes 05/13/2024 Colon cancer screening (ICD-10 - Z12.11) 05/13/2024 Colon polyps (ICD-10 - K63.5) 07/26/2023 Encounter for screening for malignant neoplasm of colon (ICD-10 - Z12.11) 07/26/2023 Preprocedural examination (ICD-10 - Z01.818) 05/13/2024 Diverticulosis of large intestine without perforation or abscess without bleeding (ICD-10 - K57.30) PLAN OF TREATMENT Pending Test Test Name Order Date Pathology 05/13/2024 Future Test Test Name Order Date COLONOSCOPY 08/04/2023 Insurance Providers Payer Name Payer Address Payer Phone Subscriber Number Group Number Insured Name Patient Relationship to Insured Coverage Start Date Coverage End Date [facility] [address] [place] [address] [id number] [place] Self - patient is the insured MEDICAL (GENERAL) HISTORY Medical History History ICD Code HTN Migraines Being tested for sleep apnea at the end of 07/2023 Denies OH,DM,CVA,Lung disease,renal dise ase Surgical History Surgery Date(Month/Year) CCY Right knee arthroscopy
--- OUTSIDE RECORDS SUMMARY | 2024-06-16 19:08 | XMS_ITS ---
Author Organization [facility] Address [address] [place] [address] Care Team Providers Care General Ledger Accountant Name Role Phone Asif Fay MD Primary Care Provider Unavaila Victor Manuel Recio Unavailable [phone] REASON FOR VISIT colon screening Encounters Encounter Location Date Provider Diagnosis [facility] [place] [address] [place], [place] [id number] 01/22/2024 Victor Manuel Balderas PLAN OF TREATMENT No Information
== END 2024-06-16 15:05 | disposition home or self-care (01) ==
LOC: HO.LAB 15:04
PROVIDERS: PCP Internal Medicine; Visit Provider Family Medicine
DX: N39.0 Urinary tract infection, site not specified (principal); R30.0 Dysuria
CPT/HCPCS: 81001; 88112

== ENCOUNTER 2024-10-21 14:04 | Outpatient (AMB) | payer BC, SELFPAY ==
--- OUTSIDE RECORDS SUMMARY | 2023-10-04 10:20 | XMS_ITS ---
Author Organization [facility] Address [address] [place] [address] Care Team Providers Care Top Flavor Attendant Name Role Phone Asif Fay MD Primary Care Provider Victor Manuel Vega [phone] REASON FOR VISIT screening Encounters Encounter Location Date Provider Diagnosis [facility] Outpatient [address] [place] [id number] 10/04/2023 Victor Manuel Balderas Plan Of Treatment No Information Progress Notes * URI LOUISOB:[birth year] (48 yo F)Acc No.[id number]:10/04/2023 COLON WITH MAC Patient: PAYAL CASTILLOLLE Provider: Nikko Balderas MD :1975 A ge:47 Y S ex:Female Date:10/04/2023 Address:[address] [place], [place] [id number] Pcp:Asif Fay MD Subjective: * Chief Complaints: * 1 . Screening. * Medical History: Objective: * Vitals: Assessment: Plan: * Treatment: * * The named appointment provid er may or may not be the originator of this progress note, and it is not deemed complete until electronically signed by the appointment provider. Sign off status: Pending * Provider: Nikko Balderas MD Date: 10/04/2023 Generated for Regan rosenthal/Sera/eTransmitting on: 10/21/2024 02:46 PM EDT
[2024-10-21 14:10] VITALS: BP 120/68; PULSE 79; O2SAT 94; BMI 49.0
--- NOTE | 2024-10-21 14:10 | MHC.OFFVIS ---
Vital Signs 10/21/24 14:10 Height 5 ft 4 in Weight 285 lb 8 oz BMI 49.0 BP 120/68 Blood Pressure Location Rt radial Position Sitting Pulse 79 Pulse Source Pulse Oximeter Pulse Oximetry (%) 94 Oxygen Delivery Method Room Air Intake Visit Reasons: Sleep apnea Allergies penicillin G (Penicillin G) Allergy (Unknown, Verified 10/21/24 14:13) RASH penicillin V Allergy (Unknown, Verified 10/21/24 14:13) Rash levoquin Allergy (Uncoded 10/21/24 14:13) felt terrrible difficulty breathing HPI HPI Sleep apnea: Details: Taty is a pleasant 48 year old female, never smoker, with underlying mild JANIE on CPAP, asthma, HTN and migraines. Prior to initiating CPAP therapy, she reported symptoms of loud snoring, daytime fatigue, proximal nocturnal dyspnea and occasional morning headaches. She has since been started on CPAP therapy, APAP mode and pressure settings of 6-16 cmH20 using consistently with resolution of JANIE symptoms. Today she presents to review compliance report. At this time, she denies any respiratory symptoms. [facility] Medical History (Updated 11/29/23 @ 15:38 by Amie Rodrigez NP) Connective tissue disease Migraine Kidney stone HTN (hypertension) History of endometriosis Surgical History (Updated 01/14/20 @ 15:41 by Isa Littlejohn PA-C) History of cholecystectomy S/P right knee arthroscopy Family History (Updated 01/14/20 @ 15:42 by Isa Littlejohn PA-C) Mother Kidney disease HTN (hypertension) Father No problems noted. 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 Review of Systems Const Denies chills, Denies excessive sweating, Denies fever(s), Denies headache(s) and Denies night sweats Eyes Denies dry eyes, Denies irritation and Denies itchy eyes ENT Reports Normal hearing present, Denies headache(s), Denies nasal congestion, Denies nasal discharge, Denies post nasal drip and Denies sore throat Card Denies chest pain, Denies chest pain at rest, Denies chest pain with activity, Denies claudication, Denies leg edema, Denies dyspnea, Denies dyspnea on exertion, Denies orthopnea and Denies paroxysmal nocturnal dyspnea Resp Denies chest congestion, Denies cough, Denies excessive phlegm production, Denies pain on inspiration, Denies pain with cough, Denies dyspnea, Denies dyspnea on exertion, Denies stridor and Denies wheezing Musc Denies myalgias Neuro Reports Normal hearing present and Denies headache(s) Endo Denies excessive sweating Tom/Lymph Denies lymphadenopathy Aller/Immun Denies itchy eyes, Denies seasonal rhinorrhea and Denies wheezing Physical Exam Const General: cooperative, healthy appearing, comfortable, no acute distress, well developed and alert Nutritional Appearance: obese Orientation/consciousness: patient oriented x3 Limitations: no limitations HEENT Head: Yes normal to inspection, Yes normocephalic and Yes atraumatic Ears: hearing grossly normal bilaterally and external ears normal Eyes General: appearance normal, both eyes and all related structures Eyelids: Yes eyelids normal Sclerae: sclerae normal EOM: EOMs intact bilaterally Neck Neck: Yes normal visual inspection and Yes no lymphadenopathy Lymphatic: no lymphadenopathy noted Chest Chest palpation & inspection: normal inspection of the chest Resp Effort & Inspection: normal respiratory effort, able to speak in complete sentences, no audible wheezes, no cough, no stridor, not tachypneic, no tripod positioning and no use of accessory muscles Auscultation: clear to auscultation bilaterally Cardio Jugular venous distension: no JVD Rate: regular rate Rhythm: regular rhythm Skin Other: warm, dry General skin exam: no rashes or lesions noted Neuro General: patient oriented x3 Cranial nerves: Yes Normal hearing present Cognition (Neuro): normal cognition Gait exam (Neuro): Normal gait present Extrem General: Yes normal to inspection, Yes capillary refill normal, Yes no clubbing, cyanosis or edema and Yes no pedal edema Psych Appearance: grossly normal and well kempt Speech and movement: Normal speech and movement present and Clear speech present Affect: normal affect Attitude: cooperative Thought process: Normal thought process present Thought content: Normal thought content present Insight: Good insight present (Psych) Judgement: Good judgement present (Psych) Assessment & Plan Assessment & Plan (1) Asthma: Code(s): J45.909 - Unspecified asthma, uncomplicated Category: Medical (2) Obstructive sleep apnea: Code(s): G47.33 - Obstructive sleep apnea (adult) (pediatric) Category: Medical Plan Reviewed compliance report for the last 30 days which revealed use of >4 hours 97% of the time, average AHI 0.8 with minimal leaking. She reports resolution of JANIE symptoms since using other than occasional snoring. She is motivated to use and encouraged patient to trial different masks. At this time, she reports good control of respiratory symptoms and is aware to call if symptoms change. All questions were answered and patient is in agreement of plan. Will follow up in 3-6 months or sooner if needed. Coding Level of Care Code Est Pt Level 4 (33882) Diagnoses Asthma J45.909 Obstructive sleep apnea G47.33
== END 2024-10-21 14:31 | disposition home or self-care (01) ==
PROVIDERS: PCP Internal Medicine; Visit Provider Nurse Practitioner Family
DX: J45.909 Unspecified asthma, uncomplicated (principal); G47.33 Obstructive sleep apnea (adult) (pediatric)
CPT/HCPCS: 99214

== ENCOUNTER 2024-11-05 15:13 | Outpatient (AMB) | payer BC, SELFPAY ==
--- OUTSIDE RECORDS SUMMARY | 2024-01-22 05:30 | XMS_ITS ---
Author Organization [facility] Address [address] [place] [address] Care Team Providers Care Contact Officer Name Role Phone Sumeet (RETIRED) Asif POOLE Primary Care Provide Victor Manuel Hernandez [phone] REASON FOR VISIT colon screening Encounters Encounter Location Date Provider [place] [facility] [place] [address] [place] [id number] 01/22/2024 Victor Manuel Balderas Plan Of Treatment No Information Progress Notes * URI LOUISOB:[birth year] (48 yo F)Acc No.[id number]:01/22/2024 COLON WITH MAC Patient: PAYAL CASTILLOLLE Provider: Nikko Balderas MD :1975 A ge:48 Y S ex:Female Date:01/22/2024 Address:[address] [place], [place] [phone] Pcp:Asif Fay (RETIRED )MD Subjective: * Chief [...] 1 Generated for Regan rosenthal/Sera/eTransmitting on: 0 11/05/2024 03:15 PM EDT
--- NOTE | 2024-11-05 15:15 | A.OFFVIS_ITS ---
Vital Signs 11/05/24 15:15 Height 5 ft 4 in Intake Visit Reasons: 6 mnts migraine Allergies penicillin G (Penicillin G) Allergy (Unknown, Verified 11/05/24 15:15) RASH penicillin V Allergy (Unknown, Verified 11/05/24 15:15) Rash levoquin Allergy (Uncoded 11/05/24 15:15) felt terrrible difficulty breathing Medication List - Last Reconciled 11/05/24 by Alyssa Ferguson CNP magnesium oxide 300 mg PO DAILY propranolol ER 60 mg PO DAILY HPI Comments Details: 48 y/o woman with JANIE on CPAP, and migraine without aura and ocular migraine. She was doing okay. Migraines have been very good with propranolol. She got slight headache after missing medication for a few days while on vacation a few months ago. No significant migraines. No medication side effects. Sleep was okay, using CPAP. [facility] Medical History (Updated 11/05/24 @ 15:18 by Alyssa Ferguson CNP) Obesity Arthritis Insomnia Ocular migraine Connective tissue disease Migraine Kidney stone HTN (hypertension) History of endometriosis Surgical History (Updated 01/14/20 @ 15:41 by Isa Littlejohn PA-C) History of cholecystectomy S/P right knee arthroscopy Family History (Updated 01/14/20 @ 15:42 by Isa Littlejohn PA-C) Mother Kidney disease HTN (hypertension) Father No problems noted. 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 Review of Systems Const Denies chills, Denies daytime sleepiness, Reports difficulty sleeping, Denies fatigue, Denies fever(s), Denies frequent falls, Reports headache(s), Denies increased appetite, Denies poor appetite, Denies snoring, Denies weakness, Denies weight gain and Denies weight loss Eyes Denies loss of vision ENT Denies vertigo, Denies dizziness and Reports headache(s) Card Denies chest pain at rest, Denies chest pain with activity, Denies syncope, Denies leg edema and Denies palpitations Resp Denies snoring GI Denies constipation, Denies heartburn, Denies diarrhea and Denies nausea Denies urinary frequency, Denies urinary incontinence and Denies urinary urgency Musc Denies abnormal gait, Denies numbness and Denies tingling Skin/Breast Denies dry skin and Denies rash Neuro Denies abnormal gait, Denies vertigo, Denies dizziness, Denies syncope, Denies frequent falls, Reports headache(s), Denies lack of coordination, Denies loss of vision, Denies memory loss, Denies numbness, Denies restless legs, Denies seizure-like activity, Denies tingling, Denies paresthesias, Denies tremor(s) and Denies weakness Psych Reports anxiety, Denies depression, Denies auditory hallucinations, Denies memory loss, Denies visual hallucinations and Denies suicidal ideation Endo Denies fatigue and Denies palpitations Physical Exam Const Other: General Appearance:? normal, in no acute distress. Skin:? no rashes, no significant birthmarks. Heart:? S1, S2 normal, no murmurs. Lungs:? clear anteriorly and posteriorly. Extremities:? no edema. Psych:? alert, oriented, cognitive function intact, cooperative with exam. Neuro Other: Mental Status:?Normal attention, orientation, memory and affect.? Cranial Nerves:?Pupils are equal, round and reactive to light. External occular muscles are intact. Visual swanson are full. Face is symmetrical. Facial sensations are normal. Tongue is midline. Palate elevates symmetrically. Shoulder shrugging is normal. Hearing to bedside conversation is normal. Motor Examination:?Normal muscle tone, bulk and strength,?Deep tendon reflexes are 2+,?Plantars are flexor.? Sensory Exam:?....? Coordination:?No ataxia,?no titubation.? Gait Exam: Within normal limits. Cerebellar Signs:?Ssbkzi-au-wauw and zusn-je-xwwb is normal.? Extrapyramidal System:?No tremor, rigidity with normal facial expressions.? Pronator Drift:?Not present.? Involuntary Movements:?No tremors seen.? Speech:?Normal.? Assessment & Plan Assessment & Plan (1) Migraine: Code(s): G43.909 - Migraine, unspecified, not intractable, without status migrainosus Category: Medical Qualifiers: Migraine type: unspecified Status migrainosus presence: without status migrainosus Intractability: not intractable Qualified Code(s): G43.909 - Migraine, unspecified, not intractable, without status migrainosus Plan: Continue propranolol ER 60mg 1 capsule daily Medications: New propranolol ER 60 mg PO DAILY 90 caps 3RF 90 days Discontinued propranolol ER Discontinued Reason: Order 60 mg PO DAILY Coding Level of Care Code Est Pt Level 3 (58175) Diagnoses Migraine without status migrainosus, not intractable, unspecified migraine type G43.909 Migraine type: unspecified Status migrainosus presence: without status migrainosus Intractability: not intractable
--- OUTSIDE RECORDS SUMMARY | 2024-11-05 15:15 | XMS_ITS | Clinical Summary ---
Author Organization [facility] Address [address] [place] [phone] Phone Care Team Providers Care Spanish Speaking Nanny Name Role Phone Asif Fay MD Primary Care Provider Allergies Active Allergy Reactions Criticality Noted Date Comments Levofloxacin 01/15/2024 Other Reaction(s): Unknown Penicillins Rash Low 11/03/2018 Medications ibuprofen (ADVIL,MOTRIN) 200 MG tablet Take 200 mg by mouth every 6 (six) hours as needed for pain (specific location in comments). Active propranoloL (INDERAL LA) 60 mg 24 hr capsule Take 60 mg by mouth daily. 06/24/2020 Active magnesium oxide-Mg AA chelate (MAGNESIUM, OXIDE/AA CHELATE,) 300 mg Cap 1 capsule with a meal Orally Once a day for 30 day(s) Active norethindrone (MICRONOR) 0.35 mg tabletIndicatio ns:Menorrhagia with irregular cycle Take 1 tablet (0.35 mg total) by mouth daily. Micronor 1 tab po QD 84 tablet 3 05/20/2024 Active meloxicam (MOBIC) 15 MG tablet TAKE 1 TABLET BY MOUTH DAILY TAKE 1 TABLET WITH FOOD DAILY NEEDED FOR PAIN 07/17/2024 Active Active Problems Problem Noted Date Diagnosed Date Menorrhagia with irregular cycle 08/10/2024 Encounters Date Type Department Care Team Description 08/10/2024 12:05 PM EDT - 08/10/2024 1:13 PM EDT Surgery OR Admitting Dept - Virtual Department [address] [place] [phone] Bartolome Lyons MD DILATION AND CURETTAGE WITH HYSTEROSCOPY 08/10/2024 12:05 PM EDT Anesthesia Event OR Admitting Dept - Virtual Department [address] [place] [phone] Sammy Steele MD Mayer, David N, MD 08/10/2024 10:21 AM EDT - 08/10/2024 2:31 PM EDT Hospital Encounter OR Admitting Dept - Virtual Department [address] [place] [phone] Bartolome Lyons MD Discharge Disposition: Home or Self Care 08/10/2024 Procedure Pass OR Admitting Dept - Virtual Department [address] [place] [phone] from Last 3 Months Immunizations Immunization Administration Dates Next Due COVID-19 (Pre-02/04) Pfizer Vaccine, mRNA, PF Family History Medical History Relation Comments Atrial fibrillation Mother Kidney disease Mother Relation Status Comments Brother Alive Daughter Alive Father Alive Mother Alive Sister Alive Social History Tobacco Use Types Packs/Day Years Used Date Smoking Tobacco: Never Smokeless Tobacco: Never Tobacco Cessation:Counseling Given: Not Answered Alcohol Use Standard Drinks/Week Comments Yes 0 (1 standard drink = 0.6 oz pur e alcohol) one drink a month Education Answer Date Recorded Are you interested in more education? Not on sowmya e 08/10/2022 Are you concerned about learning? Not on file 08/10/2022 No 08/10/2022 No 08/10/2022 Digital Access Answer Date Recorded No 09/08/2022 No 09/08/2022 Reliable internet access at home? Not on file 09/08/2022 Device with a working camera? Not on file Intimate Partner Violence Answer Date R ecorded Are you denied basic needs s uch as food, clothing, or medical care? No 07/30/2024 In the past 12 months have y ou been in a relationship with a person who hurts, threatens, or tries to control you? No 07/30/2024 Are you denied basic needs s uch as food, clothing, or medical care? No 07/30/2024 In the past 12 months have y ou been in a relationship with a person who hurts, threatens, or tries to control you? No 07/30/2024 Comments No Sex and Gender Information Value Date Recorded Sex Assigned at Female 03/20/2024 3:00 PM EST Legal Sex Female 3:26 PM EDT Gender Identity Female 03/20/2024 3:00 PM EST Sexual Orientation Straight 06/04/2024 11 :20 AM EST Occupation Industry Job Start Date Job End Date Staying at home Not on file Not on file Not on file Last Filed Vital Signs Vital Sign Reading Time Taken Comments Blood Pressure 118/65 08/10/2024 1:30 PM EDT Pulse 64 08/10/2024 1:34 PM EDT Temperature 36.2 C (97.2 F) 08/10/2024 1:30 PM EDT Respiratory Rate 14 08/10/2024 1:34 PM EDT Oxygen Saturation 97% 08/10/2024 1:34 PM EDT Inhaled Oxygen Concentration - - Weight 128.8 kg (284 lb) 07/22/2024 1:53 PM EDT Height 165.1 cm (5' 5 ) 07/22/2024 1:53 PM EDT Body Mass Index 47.26 07/22/2024 1:53 PM EDT Plan of Treatment Upcoming Encounters Date Type Department Care Team (Latest Contact Info) Description 06/17/2024 Procedure Pass [address] [place] [address] 12/08/2024 10:50 AM EDT Office Visit PRODUCTION CONTROLLER Minimally Invasive Software Asset Manager Procedures [facility] [place] [address] [facility], [address] [place] [address] Xuan Bills MD [address] [facility] [place] [address] [email or web address] 12/09/2024 9:45 AM EDT Pre-Admission Testing [facility] [place]cedure Evaluation Department Please [place] [phone] Xuan Bills MD [address] [place] [address] [email or web address] 12/23/2024 Procedure Pass [facility] [address] [place] [phone] 12/23/2024 12:35 PM EDT Hospital Encounter [facility] [address] [place] [phone] Xuan Bills MD [address] [place] [address] [email or web address] 12/23/2024 12:35 PM EDT - 12/23/2024 5:02 PM EDT Surgery [facility] [address] [place] [phone] Xuan Bills MD [address] [place] [address] [email or web address] LAPAROSCOPIC HYSTERECTOMY 12/28/2024 11:00 AM EDT Appointment [facility] - [address] [place] [address] Asif Fay MD [address] [place] [address] Dr ALVES [address] [place] [address] [place] [address] 01/05/2025 10:50 AM EDT Office Visit PRODUCTION CONTROLLER Minimally Invasive Software Asset Manager Procedures [facility] [place] [address] [facility], [address] [place], [place] [phone] Xuan Bills MD [address] [place] [address] [email or web address] Scheduled Procedures Name Priority Associated Diagnoses Date/Ti il LAPAROSCOPIC HYSTERECTOMY Adenomyosis 12/23/2024 12:35 PM EDT LAPAROSCOPIC SALPINGECTOMY BILATERAL Adenomyosis 12/23/2024 12:35 PM EDT Health Maintenance Due Date Last Done Comments Adult Td,Tdap Booster 1975 LIPID PANEL 1975 DEPRESSION SCREENING 1987 HEPATITIS C SCREENING 12/05/1993 HIV ONE-TIME SCREENING (18-65 YEARS) 12/05/1993 SCREENING FOR DIABETES 12/05/2010 COLOGUARD 12/05/2020 COLONOSCOPY 12/05/2020 COLORECTAL CANCER SCREENING 12/05/2020 FIT TEST 12/05/2020 FOBT 12/05/2020 SIGMOIDOSCOPY 12/05/2020 VIRTUAL COLONOSCOPY 12/05/2020 COVID-19 VACCINE ( season) 2023 04/14/2022, 04/17/2021, 09/07/2020, Additional history exists MAMMOGRAM 08/04/2025 08/05/2023, 08/22/2017 PAP SMEAR 02/23/2027 02/24/2024, 09/0 12/2018, 12/22/2018 IUD 08/10/2032 08/10/2024 SMOKING STATUS SCREENING (Once After 26 Yrs) Completed 08/10/2024 HEPATITIS A VACCINES Aged Out No long er eligible based on patient's age to complete this topic HIB VACCINES Aged Out No longer eligi ble based on patient's age to complete this topic MENINGOCOCCAL VACCINES (ACWY) Aged Out No longer eligible based on patient's age to complete this topic MENINGOCOCCAL VACCINES (B) Aged Out N o longer eligible based on patient's age to complete this topic PNEUMOCOCCAL VACCINES (0-49 years) Aged Out No longer eligible based on patient's age to complete this topic Medical Devices Implanted Type Area Fruit Express Agent Device Identifier Shelf Expiration Date Model / Serial / Lot Device Contraceptive 52mg Iud Mirena - Must Order In Multiples Of 5 - [id number] Implanted:Qty: 1 on 08/10/2024 by Bartolome Lyons MD at [facility] N/A: Uterus [facility] 08/12/2026 [id number] / [id number] / [id number] Procedures Procedure Name Priority Date/Time Associated Diagnosis Comments AIRWAY PLACEMENT Routine 08/10/2024 12:1 9 PM EDT AR HYSTEROSCOPY,W/ENDO BX 08/10/2024 12:08 PM EDT Menorrhagia with irregular cycle ANATOMIC PATHOLOGY Routine 08/10/2024 12 :00 AM EDT PAP TEST Routine 02/24/2024 12:00 AM EST BI MAMMOGRAM SCREENING WITH TOMOSYNTHESIS WITH CAD (BILATERAL) Routine 08/05/2023 2:38 PM EDT Breast screening from Last 3 Months or Most Recently Relevant to Health Maintenance Results * ANES ETT DOUBLE LUMEN - AIRWAY LDA (08/10/2024 12:19 PM EDT) Narrative Shelly Sepulveda CRNA - 08/10/2024 12:19 PM EDT Shelly Sepulveda CRNA 08/10/2024 12:41 PM Airway Placement Procedure Note: Patient was not difficult to intubate. Procedure performed by: anesthesiologist Anesthesiologist: Sammy Steele MD Fellow/Resident/SUPERVISOR CAR AND YARD: Shelly Sepulveda CRNA Airway procedure initiated at:08/10/2024 12:19 PM and ended at. Personal Protective Equipment: Mask: surgical mask Eye Protection: eye shield Gloves: gloves Mask Ventilation: Quality: easy Adjunct: jaw thrust Airway Placement: Technique: direct laryngoscopy Rapid sequence induction: no Details: Blade type: Glidescope Blade size: 3 Airway manipulation: cricoid pressure Number of attempts: 1 ETT type: cuffed ETT size: 7.0 ETT depth at teeth: 21 ETT cuff inflation volume: 5 Tube position confirmed by: bilateral breath sounds and EtCO2 Outcomes: Evidence of dental injury? no Complications observed? no Notes: ETT placed by EMT-P student. Elective video for teaching. us Sammy Steele MD AR ANESTHESIA Edited Result - Final * Anatomic Pathology (08/10/2024 12:00 AM EDT) 08/10/2024 08/10/2024 2:3 2 PM EDT Narrative SEE NARRATIVE - 08/11/2024 2:23 PM EDT [address] [address] Typewriter Assembler: Bernard Hirsch MD Surgical Pathology Report FINAL PATHOLOGIC DIAGNOSIS: ENDOMETRIAL CURETTINGS: Superficial inactive endometrium with tubal metaplasia and breakdown. Negative for a polyp and hyperplasia. Electronically Signed Out By Bernard Hirsch MD By his/her signature above, the pathologist listed as making the Final Diagnosis certifies that he/she has personally reviewed this case and confirmed or corrected the diagnosis. CLINICAL HISTORY Menorrhagia with irregular cycle [N92.1] Endometrial polyp [N84.0] SPECIMENS SUBMITTED: A: ENDOMETRIAL CURETTINGS GROSS DESCRIPTION ENDOMETRIAL CURETTINGS: Received in formalin is a 1.0 x 1.0 x 0.4 cm aggregate of dark red blood clot admixed with mucus and irregular timmons-pink soft tissue fragments which is submitted in toto in a single cassette labeled A1. Grossed by: LUISA Valenzuela, PA(ASCP) [id number] 08/10/2024 Grossing Staff: [id number] Patient Name: CAYDEN LITTLE : 1975 (Age: 48) Sex: F Institution: [facility] Location: [facility] Date of Operation: 08/10/2024 Date of Reported: 08/11/2024 14:23 Results To: Bartolome Lyons MD, BS Asif Fay MD us Bartolome Lyons MD PATHOLOGY ORDERABLES Final Re sult SEE NARRATIVE * Pap Test (02/24/2024 12:00 AM EST) 02/24/2024 02/25/2024 8:4 1 AM EST Narrative SEE NARRATIVE - 02/28/2024 2:25 PM EST [address] [address] Typewriter Assembler: Bernard Hirsch MD FIRE ALARM REPAIRER Cytology Report FINAL DIAGNOSIS A. PAP SMEAR (THIN PREP) CE: SPECIMEN ADEQUACY: Satisfactory for evaluation; transformation zone present. INTERPRETATION: NEGATIVE FOR INTRAEPITHELIAL LESION OR MALIGNANCY. This specimen was analyzed by the automated ThinPrep Imaging System ([employer] and the selected wsanson were reviewed by a fundraising sale representative. Electronically Signed Out By: JESSICA Dhillon(ASCP) The Pap test is a screening test primarily for squamous cancers and precursors and has associated false-negative and false-positive results. New technologies such as liquid-based preparations may decrease but will not eliminate all false-negative results. Regular sampling and follow-up of unexplained clinical signs and symptoms are recommended to minimize false negative results. PROCEDURES/ADDENDA HPV Testing (Requested) Ordered Date: 02/25/2024 A. PAP SMEAR (THIN PREP) CE: High-risk HPV Panel w/ extended genotyping NEG HPV 16-NEG HPV 18-NEG HPV 45-NEG HPV 33/58-NEG HPV 31-NEG HPV 56/59/66-NEG HPV 51-NEG HPV 52-NEG HPV 35/39/68-NEG Performed by real-time polymerase chain reaction (PCR) at [address] using the FDA-approved BD Onclarity9 HPV Assay with extended genotyping. Uses of the assay in scenarios other than those approved by the FDA should be considered off-label use. The accuracy and precision of this test for all other off-label specimen sources has been verified in the Cytopathology Laboratory of the [facility] and has not been cleared or approved by the U.S. Food and Drug Administration. Clinical correlation is advised. The assay assesses the E6/E7 DNA target and utilizes human beta globin as an internal control. Cytology and HPV testing are screening assays and should not be used as the sole means of detecting cancer. False-positives and false-negatives can occur. Electronically Signed Out By: RIRI Gallo([facility]) on 02/27/2024 11:28 CLINICAL HISTORY Date of Last Menstrual Period: 02-16-2024 Menstrual History: Maryann-Menopausal Other Clinical Conditions: Screening Pap SPECIMEN SOURCE A: PAP SMEAR (THIN PREP) CE Patient Name: CAYDEN LITTLE : 1975 (Age: 48) Sex: F Institution: [facility] Location: [facility] Date of Collection: 02/24/2024 Date of Reported: 02/28/2024 14:25 Results to: Bartolome Lyons MD, BS Bartolome Lyons MD CYTOLOGY ORDERABLES Final Res ult SEE NARRATIVE * (ABNORMAL) BI MAMMOGRAM SCREENING WITH TOMOSYNTHESIS WITH CAD (BILATERAL) (08/05/2023 2:38 PM EDT) Anatomical Region Laterality Modality Breast Left, Breast Right, Breast Bilateral Bila teral Mammography 08/06/2023 2:22 PM EDT Impressions 08/06/2023 5:38 PM EDT 1. Asymmetry in the upper posterior left breast on the MLO view for which additional imaging is recommended. 2. No mammographic evidence of malignancy in the right breast. BI-RADS 0 INCOMPLETE Needs additional imaging evaluation The patient will be notified of the results and recommendations. The mammography department will contact the patient to arrange for the additional imaging. Narrative 08/06/2023 5:38 PM EDT BI MAMMOGRAM SCREENING WITH TOMOSYNTHESIS WITH CAD (BILATERAL) Additional patient information: Screening. COMPARISON: Comparison is made with relevant prior imaging. Breast composition: The breast tissue is heterogeneously dense which may obscure small masses. FINDINGS: Right No abnormal masses, suspicious calcifications, or other significant findings are identified mammographically in the right breast. Left A new small asymmetry is present on MLO view in the upper left breast at posterior depth. Otherwise, no evidence of suspicious masses or architectural distortion. No suspicious microcalcifications. Procedure Note Adan Matute MD - 08/06/2023 BI MAMMOGRAM SCREENING WITH TOMOSYNTHESIS WITH CAD (BILATERAL) Additional patient information: Screening. COMPARISON: Comparison is made with relevant prior imaging. Breast composition: The breast tissue is heterogeneously dense which mayobscure small masses. FINDINGS: Right No abnormal masses, suspicious calcifications, or other significantfindings are identified mammographically in the right breast. Left A new small asymmetry is present on MLO view in the upper left breast atposterior depth. Otherwise, no evidence of suspicious masses orarchitectural distortion. No suspicious microcalcifications. IMPRESSION: 1. Asymmetry in the upper posterior left breast on the MLO view for whichadditional imaging is recommended. 2. No mammographic evidence of malignancy in the right breast. BI-RADS 0 INCOMPLETE Needs additional imaging evaluation The patient will be notified of the results and recommendations. Themammography department will contact the patient to arrange for theadditional imaging. Bartolome Lyons MD IMG MG EXAMS Final Result from Last 3 Months or Most Recently Relevant to Health Maintenance Insurance PPO EPO PPO EPO PPO EPO PPO EPO PPO EPO PPO EPO PPO EPO PPO EPO PPO EPO Advance Directives For more information, please contact: [phone] (9AM - 5PM [place], Saturday-Saturday) Documents on File Type Date Recorded Patient Site Promotion Agent Expl anation Healthcare Proxy 08/10/2024 * Full Code (Latest Code Status on File) Date Activated Date Inactivated Comments 07/30/2024 12:15 PM Question Answer Comments Code Status Confirmed With: Patient Care Teams Spanish Speaking Nanny Relationship Specialty Start Date End Date Asif Fay MD [address] [place] [address] [place] [address] PCP - General Internal Medicine 10/13/18 Additional Source Comments The information contained in this document represents components of the legal health record. It is not the complete legal health record.[facility]
== END 2024-11-05 15:25 | disposition home or self-care (01) ==
LOC: HO.HSM 15:14
PROVIDERS: PCP Internal Medicine; Visit Provider Registered Nurse
DX: G43.909 Migraine, unspecified, not intractable, without status migrainosus (principal)
CPT/HCPCS: 99213

== ENCOUNTER 2024-12-17 16:54 | Outpatient (AMB) | payer BC, SELFPAY ==
--- OUTSIDE RECORDS SUMMARY | 2023-10-04 10:20 | XMS_ITS ---
Author Organization [facility] Address [address] [place] [address] Care Team Providers Care Collections Officer Name Role Phone Sumeet (RETIRED) Asif POOLE Primary Care Provide Victor Manuel Hernandez [phone] REASON FOR VISIT screening Encounters Encounter Location Date Provider Diagnosis [facility] [place] [address] [place] [id number] 10/04/2023 Victor Manuel Balderas Plan Of Treatment No Information Progress Notes * URI LOUISOB:[birth year] (49 yo F)Acc No.[id number]:10/04/2023 COLON WITH MAC Patient: CA CASTILLOABELLE Provider: Nikko Balderas MD :1975 A ge:47 Y S ex:Female Date:10/04/2023 Address:[address] [place], [place] [id number] Pcp:Asif Fay (RETIRED )MD Subjective: * Chief [...] 0 10/04/2023 Generated for Regan rosenthal/Sera/eTransmitting on: 0 12/17/2024 04:57 PM EDT
--- OUTSIDE RECORDS SUMMARY | 2024-01-22 05:30 | XMS_ITS ---
Author Organization [facility] Address [address] [place] [address] Care Team Providers Care Equipment Installation Professional Name Role Phone Sumeet (RETIRED) Asif POOLE Primary Care Provide Victor Manuel Hernandez [phone] REASON FOR VISIT colon screening Encounters Encounter Location Date Provider Diagnosis [facility] Out[facility] [address] [place] [id number] 01/22/2024 Victor Manuel Balderas Plan Of Treatment No Information Progress Notes * URI LOUISOB:[birth year] (49 yo F)Acc No.[id number]:01/22/2024 COLON WITH MAC Patient: PAYAL CASTILLOLLE Provider: Nikko Balderas MD :1975 A ge:48 Y S ex:Female Date:01/22/2024 Address:[address] [place], [place] [phone] Pcp:Asif Fay (RETIRED )MD Subjective: * Chief [...] Pending * Provider: Nikko Balderas MD Date: 1 Generated for Regan rosenthal/Sera/eTransmitting on: 0 12/17/2024 04:56 PM EDT
--- OUTSIDE RECORDS SUMMARY | 2024-05-13 03:30 | XMS_ITS ---
Author Organization [facility] Address [address] [place] [address] Care Team Providers Care Amusement Ride Inspector Name Role Phone Sumeet (RETIRED) Asif POOLE Primary Care Provide Victor Manuel Hernandez [phone] REASON FOR VISIT COLON SCREENING Problems Problem Type SNOMED Code ICD Code Onset Dates Problem Status W/U Status Risk Notes Problem Diverticular disease of colon (658873844) Diverticulosis of large intestine without perforation or abscess without bleeding (K57.30) Active confirmed Encounters Encounter Location Date Provider Diagnosis [facility] [place] [address] [place] [phone] 05/13/2024 Victor Manuel Balderas Colon cancer scree [...] * URI LOUISOB:[birth year] (49 yo F)Acc No.[id number]:05/13/2024 COLON WITH MAC Patient: Mathieu NAZARIO CAYDEN Provider: Nikko Balderas MD :1975 A ge:48 Y S ex:Female Date:05/13/2024 Address:[address] [place], [place] [phone] Pcp:Asif Fay (RETIRED )MD Subjective: * Chief [...] 0 05/13/2024 Generated for Regan rosenthal/Sera/Sarahitting on: 0 12/17/2024 04:57 PM EDT
--- OUTSIDE RECORDS SUMMARY | 2024-12-17 16:57 | XMS_ITS | Encounter Summary ---
Author Organization [facility] Address [address] [place] [address] Phone Care Team Providers Care Pet Walker Name Role Phone Asif Fay MD Primary Care Provider Encounter Details Date Type Department Care Team (Late st Contact Info) Description 04/17/2023 Procedure Pass [facility] - [address] [place] [address] Social History Tobacco Use Types Packs/Day Years Used Date Smoking Tobacco: Never Smokeless Tobacco: Never Alcohol Use Standard Drinks/Week Comments Never 0 (1 standard drink = 0.6 oz pur e alcohol) Education Answer Date Recorded Are you interested in more education? Not on sowmya e 08/10/2022 Are you concerned about learning? Not on file 08/10/2022 No 08/10/2022 No 08/10/2022 Digital Access Answer Date Recorded No 09/08/2022 No 09/08/2022 Reliable internet access at home? Not on file 09/08/2022 Device with a working camera? Not on file Comments No Sex and Gender Information Value Date Recorded Sex Assigned at Female 03/20/2024 3:00 PM EST Legal Sex Female 3:26 PM EDT Gender Identity Female 03/20/2024 3:00 PM EST Sexual Orientation Straight 06/04/2024 11 :20 AM EST Occupation Industry Job Start Date Job End Date Staying at home Not on file Not on file Not on file documented as of this encounter Plan of Treatment Upcoming Encounters Date Type Department Care Team (Late st Contact Info) Description 06/17/2024 Procedure Pass [address] [place] [address] 12/23/2024 Procedure Pass [facility] PERIOPERATIVE DEPT [address] [place] [address] 12/28/2024 11:00 AM EDT Appointment [address] [place] [address] Asif Fay MD [address] [place] [address] Dr ALVES [address] [place] [address] 01/05/2025 10:50 AM EDT Office Visit EMBEDDED SYSTEMS DEVELOPER Minimally Invasive Gas Station Service Attendant Procedures [facility] [address] [facility], [address] [place] [address] Xuan Bills MD [address] [place] [address] [email or web address] documented as of this encounter Visit Diagnoses Not on filedocumented in this encounter Care Teams Pet Walker Relationship Specialty Start Date End Date Asif Fay MD [address] [place] [address] Dr ALVES [address] [place] [address] PCP - General Internal Medicine 10/13/18 documented as of this encounter Additional Source Comments The information contained in this document represents components of the legal health record. It is not the complete legal health record.[facility]
--- OUTSIDE RECORDS SUMMARY | 2024-12-17 16:57 | XMS_ITS | Patient Health Record ---
Author Organization [facility] Address [address] [place] [address] Care Team Providers Care Nurse First Aid Name Role Phone Sumeet (RETIRED) Asif POOLE Primary Care Provide Victor Manuel Hernandez [phone] Allergies Allergen (clinical drug ingredient) Drug/Non Drug Allergy documented on EMR Reaction Allergy Type Onset Date Status Penicillin Unknown Drug Allergy Active Levaquin Unknown Drug Allergy Active Results Component Value Reference Range Notes Ur Preg Test Reviewed date:05/13/2024 01:01:15 PM Interpretation: Performing Lab:[facility], [address] [place] [phone] Notes/Report: Urine NEGATIVE NEGATIVE This test was developed to detect early . False negative results may occur after the 5th - 7th week of when using this test method. If clinically indicated, consider a serum hCG. Pathology (Not yet reviewed by provider) Interpretation: Performing Lab:[facility], [address] [place] [phone] Notes/Report: Reason For Referral No Information Medications Medication SIG (Take, Route, Frequency, Duration) Notes Start Date End Date Status Benadryl Allergy 25 MG 1 tablet at bedti me as needed Orally Once a day Active Magnesium 300 MG 1 capsule with a maryjane l Orally Once a day for 30 day(s) Active Propranolol HCl ER 60 MG TAKE 1 CAPSULE BY MOUTH EVERY DAY Oral for 30 Active Immunizations Vaccine Route Administration Date Status Comme nts Influenza Unknown 07/26/2023 Refused Social History Tobacco Use: Social History Observation Description Date Details (start date - stop date) Never Smoker NA - NA Tobacco Use/Smoking Question Answer Notes Patient is [...] Never (0 point) Points 2 Interpretation Negative Section Notes: Nonsmoker; no sig alcohol Druze-does not accept blood products Problems Problem Type SNOMED Code ICD Code Onset Dates Problem Status W/U Status Risk Notes Problem Screening for malignant neoplasm of colon (015361563) Encounter for screening for malignant neoplasm of colon (Z12.11) Active confirmed Problem Diverticular disease of colon (648888595) Diverticulosis of large intestine without perforation or abscess without bleeding (K57.30) Active confirmed Problem Preprocedural examination (070040602118890) Preprocedural examination (Z01.818) Active confirmed Encounters Encounter Location Date Provider Diagnosis [facility] Outpatient [address] [place], [place] [id number] 05/13/2024 Victor Manuel Balderas Colon cancer screeni ng Z12.11 ; Colon polyps K63.5 and Diverticulosis of large intestine without perforation or abscess without bleeding K57.30 [facility] [address] [facility] [address] [place] [address] 01/20/2024 Victor Manuel Balderas Assessments Encounter Date Diagnosis (ICD Code) Assessment Notes Treatment Notes Treatment Clinical Notes Section Notes 05/13/2024 Colon cancer screening (ICD-10 - Z12.11) 05/13/2024 Colon polyps (ICD-10 - K63.5) 05/13/2024 Diverticulosis of large intestine without perforation or abscess without bleeding (ICD-10 - K57.30) Plan Of Treatment Pending Test Test Name Order Date Pathology 05/13/2024 Future Test Test Name Order Date COLONOSCOPY 08/04/2023 Insurance Providers Payer Name Payer Address Payer Phone Subscriber Number Group Number Insured Name Patient Relationship to Insured Coverage Start Date Coverage End Date [facility] [address] [place] [address] [phone] [id number] CAYDEN LOUIS Self - patient is the insured Medical (General) History Medical History History ICD Code HTN Migraines Being tested for sleep apnea at the end of 07/2023 Denies FL,DM,CVA,Lung disease,renal dise ase Surgical History Surgery Date(Month/Year) CCY Right knee arthroscopy
--- OUTSIDE RECORDS SUMMARY | 2024-12-17 16:57 | XMS_ITS | Clinical Summary ---
Author Organization [facility] Address [address] [place] [address] Phone Care Team Providers Care Oceanographic Meteorologist Name Role Phone Asif Fay MD Primary [...] Encounters Date Type Department Care Team Description 12/07/2024 Telephone Minimally Invasive Gynecologic Surgery [address] [facility], 4th Floor, [address] [place] [address] Xuan Bills MD 12/02/2024 Telephone [facility] Gynecology [address] [facility], 4th Floor, [address] [place] [address] Xuan Bills MD Surgery Cancellation (Patient would like to cancel her surgery on 12/23 with ) from Last 3 Months Immunizations Immunization Administration [...] st Contact Info) Description 06/17/2024 Procedure Pass [address] [place] [address] 12/23/2024 Procedure Pass [facility] PERIOPER[facility]IVE DEPT [address] [place] [address] 12/28/2024 11:00 AM EDT Appointment [address] [place] [address] Asif Fay MD [address] [place] [address] Dr ALVES [facility] [place] [address] 01/05/2025 10:50 AM EDT Office Visit BIOTECH PRODUCTION SPECIALIST Minimally Invasive Geographic Information Systems Director Procedures [facility] [address] [facility], [address] [place] [address] Xuan Bills MD [address] [place] [address] [email or web address] Health Maintenance Due Date Last Done Comments Adult Td,Tdap Booster 1975 LIPID PANEL 1975 DEPRESSION SCREENING 1987 HEPATITIS C SCREENING 12/05/1993 HIV ONE-TIME SCREENING (18-65 YEARS) 12/05/1993 SCREENING FOR DIABETES 12/05/2010 COLOGUARD 12/05/2020 COLONOSCOPY 12/05/2020 COLORECTAL CANCER SCREENING 12/05/2020 FIT TEST 12/05/2020 FOBT 12/05/2020 SIGMOIDOSCOPY 12/05/2020 VIRTUAL COLONOSCOPY 12/05/2020 INFLUENZA VACCINE (#1) 2024 COVID-19 VACCINE (2024- season) 2024 04/14/2022, 04/17/2021, 09/07/2020, Additional history exists MAMMOGRAM 08/04/2025 08/05/2023, 08/22/2017 PAP SMEAR 02/23/2027 02/24/2024, 0912/2018, 12/22/2018 IUD 08/10/2032 08/10/2024 SMOKING STATUS SCREENING [...] this topic Medical Devices Implanted Type Area Monitor Worker Device Identifier Shelf Expiration Date Model / Serial / Lot Device Contraceptive 52mg Iud Mirena - Must Order In Multiples Of 5 - [id number] Implanted:Qty: 1 on 08/10/2024 by Bartolome Lyons MD at [facility] N/A: Uterus [facility] 08/12/2026 [id number] / [id number] / [id number] Procedures Procedure Name Priority Date/Time Associated Diagnosis Comments PAP TEST Routine 02/24/2024 12:00 AM EST BI MAMMOGRAM SCREENING WITH TOMOSYNTHESIS WITH CAD (BILATERAL) Routine 08/05/2023 2:38 PM EDT Breast screening from Last 3 Months or Most Recently Relevant to Health Maintenance Results * Pap Test (02/24/2024 12:00 AM EST) 02/24/2024 02/25/2024 8:4 1 AM EST Narrative SEE NARRATIVE - 02/28/2024 2:25 PM EST [address] [address] [place] Baggage: Bernard Hirsch MD CODIFIER Cytology Report FINAL DIAGNOSIS A. PAP SMEAR (THIN PREP) CE: SPECIMEN ADEQUACY: Satisfactory for evaluation; transformation zone present. INTERPRETATION: NEGATIVE FOR INTRAEPITHELIAL LESION OR MALIGNANCY. This specimen was analyzed by the automated ThinPrep Imaging System (CubeTree.) and the selected swanson were reviewed by a rd manager. Electronically Signed Out By: JESSICA Dhillon(ASCP) The [...] by real-time polymerase chain reaction (PCR) at [facility], [address] [place] [address] using the FDA-approved BD Onclarity9 HPV Assay with extended genotyping. Uses of the assay in scenarios other than those approved by the FDA should be considered off-label use. The accuracy and precision of this test for all other off-label specimen sources has been verified in the Cytopathology Laboratory of the [facility] and has not been cleared or approved by the U.S. Food and Drug Administration. Clinical correlation is advised. The assay assesses the E6/E7 DNA target and utilizes human beta globin as an internal control. Cytology and HPV testing are screening assays and should not be used as the sole means of detecting cancer. False-positives and false-negatives can occur. CLINICAL HISTORY Date of Last Menstrual Period: 02-16-2024 Menstrual History: Maryann-Menopausal Other Clinical Conditions: Screening Pap SPECIMEN SOURCE A: PAP SMEAR (THIN PREP) CE Patient Name: CAYDEN LITTLE : 1975 (Age: 48) Sex: F Institution: [facility] Location: [facility] Date of Collection: 02/24/2024 Date of Reported: 02/28/2024 14:25 Results to: Bartolome Lyons MD, BS Bartolome Lyons MD CYTOLOGY ORDERABLES Final Res ult SEE NARRATIVE * (ABNORMAL) BI MAMMOGRAM SCREENING WITH TOMOSYNTHESIS WITH CAD (BILATERAL) (08/05/2023 2:38 PM EDT) Anatomical Region Laterality Modality Breast Left, Breast Right, Breast Bilateral Bila teral Mammography 08/06/2023 2:2 2 PM EDT Impressions 08/06/2023 5:38 PM EDT [...] Most Recently Relevant to Health Maintenance Insurance [facility] EPO PPO EPO PPO EPO PPO EPO PPO EPO PPO EPO PPO EPO PPO EPO PPO EPO Advance Directives For more information, please contact: [phone] (9AM - 5PM [place]/[facility], Saturday-Saturday) Documents on File Type Date Recorded Patient Journeyman Meat Cutter Expl anation Healthcare Proxy 08/10/2024 * Full Code (Latest Code Status on File) Date Activated Date Inactivated Comments 07/30/2024 12:15 PM Question Answer Comments Code Status Confirmed With: Patient Care Teams Oceanographic Meteorologist Relationship Specialty Start Date End Date Asif Fay MD [address] [place] [address] [place] [address] PCP - General Internal Medicine 10/13/18 Additional Source Comments The information contained in this document represents components of the legal health record. It is not the complete legal health record.[facility]
--- OUTSIDE RECORDS SUMMARY | 2024-12-17 16:57 | XMS_ITS | Encounter Summary ---
Author Organization [facility] Address [address] [place] [address] Phone Care Team Providers Care Wallcovering Texturer Name Role Phone Asif Fay MD Primary Care Provider Encounter Details Date Type Department Care Team (Late st Contact Info) Description 08/07/2023 Ancillary Orders [facility], [facility]- [address] [address] Asif Fay MD [address] [place] [address] [place] [address] Abnormal finding on mammography (Primary Dx) Social History Tobacco Use Types Packs/Day Years [...] st Contact Info) Description 06/17/2024 Procedure Pass [address] [place] [address] 12/23/2024 Procedure Pass [facility] PERIOPER[facility]IVE DEPT [address] [place] [address] 12/28/2024 11:00 AM EDT Appointment [address] [place] [address] Asif Fay MD [address] [place] [address] [place] [address] [place] [address] 01/05/2025 10:50 AM EDT Office Visit EDGER MACHINE HELPER Minimally Invasive Bulk Pigment Reducer Procedures [facility] [address] [facility], [address] [place] [address] Xuan Bills MD 40 [facility] 400 [place] [address] [email or web address] documented as of this encounter Results * BI MAMMOGRAM DIAGNOSTIC WITH TOMOSYNTHESIS WITH CAD (LEFT) (08/22/2023 1:30 PM EDT) Anatomical Region Laterality Modality Breast Left Left Mammography 08/22/2023 1:46 PM EDT Impressions 08/22/2023 1:47 PM EDT Benign findings on the left. No mammographic evidence of malignancy in the left breast. BI-RADS 2 BENIGN Results and recommendations were communicated to the patient at time of examination. Narrative 08/22/2023 1:47 PM EDT BI MAMMOGRAM DIAGNOSTIC WITH TOMOSYNTHESIS WITH CAD (LEFT) Additional patient information: Asymmetry in the superior left breast on recent screening mammogram. COMPARISON: Comparison is made with relevant prior imaging. Breast composition: The breast tissue is heterogeneously dense which may obscure small masses. FINDINGS: Left Mammogram: Previously seen asymmetry in the left breast is stable when comparing spot compression view to prior of 2018, 2-D MLO image. Additionally, the asymmetry demonstrated on standard MLO view of this ureters screening exam near completely effaces on spot compression view. There are no new or suspicious findings in the left breast. us Asif Fay MD IMG MG EXAMS Final R esult documented in this encounter Visit Diagnoses Diagnosis Abnormal finding on mammography- Primary Abnormal finding on mammography Visit for screening mammogram documented in this encounter Care Teams Wallcovering Texturer Relationship Specialty Start Date End Date Asif Fay MD [address] [place] [address] [place] [address] PCP - General Internal Medicine 10/13/18 documented as of this encounter Additional Source Comments The information contained in this document represents components of the legal health record. It is not the complete legal health record.[facility]
--- OUTSIDE RECORDS SUMMARY | 2024-12-17 16:57 | XMS_ITS | Encounter Summary ---
Author Organization [facility] Address [address] [place] [address] [place] [address] Phone Care Team Providers Care Bunch Breaker Name Role Phone Asif Fay MD Primary Care Provider Encounter Details Date Type Department Care Team (Latest Contact Info) Description 04/17/2023 Transcribe Orders Virtual Department [address] [place] [address] Bartolome Lyons MD [address] [place] [address], [facility] [address] [place] [address] [email or web address] Breast screening (Primary Dx) Social History Tobacco Use Types [...] st Contact Info) Description 06/17/2024 Procedure Pass [address] [place] [address] 12/23/2024 Procedure Pass [facility] PERIOPERATIVE DEPT [address] [place] [address] 12/28/2024 11:00 AM EDT Appointment [address] [place] [address] Asif Fay MD [address] [place] [address] Dr ALVES [facility] [place] [address] 01/05/2025 10:50 AM EDT Office Visit RESEARCH DEVELOPMENT DIRECTOR Minimally Invasive Truck Cleaner Procedures [facility] [address] [facility], [address] [place] [address] Xuan Bills MD 40 [facility] 400 [place] [address] [email or web address] documented as of this encounter Results * (ABNORMAL) BI MAMMOGRAM SCREENING WITH TOMOSYNTHESIS [...] Lyons MD IMG MG EXAMS Final Result documented in this encounter Visit Diagnoses Diagnosis Breast screening- Primary Breast screening, unspecified Breast screening Breast screening, unspecified Visit for screening mammogram documented in this encounter Care Teams Bunch Breaker Relationship Specialty Start Date End Date Asif Fay MD [address] [place] [address] [place] [address] PCP - General Internal Medicine 10/13/18 documented as of this encounter Additional Source Comments The information contained in this document represents components of the legal health record. It is not the complete legal health record.[facility]
--- OUTSIDE RECORDS SUMMARY | 2024-12-17 16:57 | XMS_ITS | Encounter Summary ---
Author Organization [facility] Address [address] [place] [address] Phone Care Team Providers Care Inspector Handbag Frames Name Role Phone Asif Fay MD Primary Care Provider Encounter Details Date Type Department Care Team (Late st Contact Info) Description 07/30/2024 Procedure Pass [place] Admitting Dept - Virtual Department [address] [place] [address] Social History Tobacco Use Types Packs/Day Years Used Date Smoking Tobacco: Never Smokeless Tobacco: Never Alcohol Use Standard Drinks/Week Comments Yes 0 [...] st Contact Info) Description 06/17/2024 Procedure Pass [address] [place] [address] 12/23/2024 Procedure Pass [facility] [address] [place] [phone] 12/28/2024 11:00 AM EDT Appointment [address] [place] [address] Asif Fay MD [address] [place] [address] [place] [address] 01/05/2025 10:50 AM EDT Office Visit SENIOR MEDICAL DIRECTOR Minimally Invasive Truss Designer Procedures [facility] [place] [address] [facility], [address] [place] [address] Xuan Bills MD 40 [facility] 400 [place] [address] [email or web address] documented as of this encounter Visit Diagnoses Not on filedocumented in this encounter Care Teams Inspector Handbag Frames Relationship Specialty Start Date End Date Asif Fay MD [address] [place] [address] [place] [address] PCP - General Internal Medicine 10/13/18 documented as of this encounter Additional Source Comments The information contained in this document represents components of the legal health record. It is not the complete legal health record.[facility]
--- OUTSIDE RECORDS SUMMARY | 2024-12-17 16:58 | XMS_ITS | Encounter Summary ---
Author Organization [facility] Address [address] [place] [address] Phone Care Team Providers Care Pattern Changer Name Role Phone Asif Fay MD Primary Care Provider Encounter Details Date Type Department Care Team (Late st Contact Info) Description 08/10/2024 Procedure Pass [place] Admitting Dept - Virtual Department [address] [place] [address] Social History Tobacco Use Types Packs/Day Years [...] st Contact Info) Description 06/17/2024 Procedure Pass [address] [place] [address] 12/23/2024 Procedure Pass [facility] DEPT [address] [place] [phone] 12/28/2024 11:00 AM EDT Appointment [address] [place] [address] Asif Fay MD [address] [place] [address] [place] [address] 01/05/2025 10:50 AM EDT Office Visit 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 Minimally Invasive Drum Reel Cutter Procedures [facility] [place] [address] [facility], [address] [place] [address] Xuan Bills MD 40 [facility] 400 [place] [address] [email or web address] documented as of this encounter Visit Diagnoses Not on filedocumented in this encounter Care Teams Pattern Changer Relationship Specialty Start Date End Date Asif Fay MD [address] [place] [address] [place] [address] PCP - General Internal Medicine 10/13/18 documented as of this encounter Additional Source Comments The information contained in this document represents components of the legal health record. It is not the complete legal health record.[facility]
[2024-12-17 16:59] VITALS: BP 124/80; PULSE 69; TEMP 36.4; O2SAT 98; BMI 49.6
--- NOTE | 2024-12-17 16:59 | A.OFFPC_ITS ---
Vital Signs 12/17/24 16:59 Height 5 ft 4 in Weight 289 lb BMI 49.6 BP 124/80 Blood Pressure Location Rt brachial Position Sitting Pulse 69 Pulse Source Pulse Oximeter Temp 97.5 F Temp Source Temporal Artery Scan Pulse Oximetry (%) 98 Oxygen Delivery Method Room Air Intake Visit Reasons: Routine International Account Representative Required: No Accompanied by: Self / Same As Patient Allergies penicillin G (Penicillin G) Allergy (Unknown, Verified 12/17/24 17:01) RASH penicillin V Allergy (Unknown, Verified 12/17/24 17:01) Rash levoquin Allergy (Uncoded 11/05/24 15:15) felt terrrible difficulty breathing Medication List - Last Reconciled 12/17/24 by KOKI Goodwin cholecalciferol (vitamin D3) 50 mcg PO DAILY magnesium oxide 300 mg PO DAILY omeprazole 20 mg PO BID ondansetron HCl 4 mg PO Q8H PRN propranolol ER 60 mg PO DAILY 90 days vitamin B complex 1 tab PO DAILY Tobacco use date assessed: 12/17/24 Dental Screening Dental Screen Date: 12/17/24 Did you have a dental visit in the last 12 months?: No Did you have a dental problem in the last 6 months where you did not have access to dental care?: No HPI HPI Comments History of Present Illness Details The patient is a 49-year-old female with JANIE, Migraine, Endometriosis, kidney stones, low vitamin D and fibromyalgia here to establish care and discuss management of fibromyalgia, perimenopausal symptoms, and gastrointestinal issues. 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 She was advised to increase calcium intake and was prescribed gabapentin, which she did not start due to insurance issues and personal preference. She manages her symptoms with increased magnesium and vitamin B intake, providing some relief. Patient is taking Propranolol with good control of migraines. Her BP today was 124/80. The patient experiences perimenopausal symptoms, including hot flashes and sleep disturbances, managed with lifestyle modifications such as increased hydration and magnesium supplementation. The patient has a history of endometriosis and adenomyosis, with significant symptoms last year. An ultrasound revealed polyps, leading to a D&C and IUD insertion, improving her symptoms over the past three months. The patient reports worsening gastrointestinal issues, including nausea, bloating, and epigastric pain, associated with acidic and fatty foods. She has a history of heavy ibuprofen use, raising concerns about gastric mucosal damage. [facility] Medical History (Updated 12/21/24 @ 02:45 by KOKI Goodwin) Arthritis Connective tissue disease Fibromyalgia Gastritis History of endometriosis HTN (hypertension) Insomnia Kidney stone Migraine Obesity Ocular migraine Perimenopausal symptom Surgical History History of cholecystectomy S/P right knee arthroscopy Family History Mother Kidney disease HTN (hypertension) Father No problems noted. 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 1. Little interest or pleasure in doing things: not at all 2. Feeling down, depressed, or hopeless: not at all 3. Trouble falling or staying asleep, or sleeping too much: not at all 4. Feeling tired or having little energy: not at all 5. Poor appetite or overeating: not at all 6. Feeling bad about yourself - or that you are a failure or have let yourself or your family down: not at all 7. Trouble concentrating on things, such as reading the newspaper or watching television: not at all 8. Moving or speaking so slowly that other people could have noticed. Or the opposite - being so fidgety or restless that you have been moving around a lot more than usual: not at all 9. Thoughts that you would be better off or of hurting yourself in some way: not at all Total score: 0 Source: Developed by Drs. Victor Manuel Horne, Violette Rockwell, Elio Fair and colleagues, with an educational candy from [employer]. Thrive Questionnaire Date Thrive assessed: 12/17/24 I am a: Patient Within the past 12 months, did the food you bought not last and you didn't have the money to get more?: Never true Within the past 12 months, did you worry whether your food would run out before you got money to buy more?: Never true Do you have trouble paying for medicines?: No Do you have trouble getting transportation to medical appointments?: No Do you have trouble paying your heating and electricity bill?: No Do you have trouble taking care of your child, family member or friend?: No Do you have trouble with day-to-day activities such as bathing, preparing meals, shopping, managing finances, etc.?: No Are you currently unemployed and looking for a job?: No Are you interested in more education?: No THRIVE Score: 0 AUDIT C Alcohol Use Questionnaire (AUDIT-C) 1. How often do you have a drink containing alcohol?: Monthly or less 2. How many drinks containing alcohol do you have on a typical day when you are drinking?: 1 or 2 3. How often do you have six or more drinks on one occasion?: Less than monthly Total Score: 2 ALICE-7 AMB Questionnaire ALICE-7 Date ALICE - 7 assessed: 12/17/24 Feeling nervous, anxious, or on edge: 0 = Not at all Not being able to stop or control worryin = Not at all Worrying too much about different things: 0 = Not at all Trouble relaxin = Not at all Being so restless that it is hard to sit still: 0 = Not at all Becoming easily annoyed or irritable: 0 = Not at all Feeling afraid as if something awful might happen: 0 = Not at all Total ALICE-7 score (0-4 normal; 5-9 mild; 10-14 moderate; 15-21 severe): 0 Source: Developed by Drs. Victor Manuel Horne, Violette Rockwell, Elio Fair and colleagues, with an educational candy from [employer]. Review of Systems Const Details: CONSTITUTIONAL Negative HEAD/NECK Negative EAR/NOSE/MOUTH/THROAT Negative RESPIRATORY Denies cough, hemoptysis, or wheezing CARDIOVASCULAR Denies chest pain, orthopnea, or syncope GASTROINTESTINAL Reports nausea, bloating, epigastric pain, and burping; denies constipation or diarrhea MUSCULOSKELETAL myalgias NEUROLOGICAL Reports hand spasms; denies headaches, dizziness, or balance issues PSYCHIATRIC Negative unobtainable due to endotracheal tube Physical exam (Primary Care) Vital Signs: Last Vital Signs Temp 97.5 F 12/17/24 16:59 Pulse 69 12/17/24 16:59 BP 124/80 12/17/24 16:59 Pulse Ox 98 12/17/24 16:59 Oxygen Delivery Method Room Air 12/17/24 16:59 BMI result Body Mass Index 49.6 GENERAL Well developed, obese, in no apparent distress HEENT Head-Normocephalic Eyes- PERRLA, EOMI, Conjuctiva clear, lids WNL Ears- Canals clear, TMs WNL Mouth/Throat-No lesions, no erythema, no exudate Neck- Supple, No lymphadenopathy, thyroid WNL RESPIRATORY Normal I:E, Clear to auscultation CARDIOVASCULAR Regular, rate and rhthym, No murmurs or rubs GASTROINTESTINAL Soft, tender in epigastric area, no guarding or rebound, normal bowel sounds, no masses NEUROLOGICAL Gait normal PSYCHIATRIC Oriented to person, place and time Mood and affect WNL Appearance WNL Speech WNL Thought processes WNL Tobacco/Smoking Status: Tobacco use Status Tobacco use date assessed 12/17/24 12/17/24 17:05 Patient Tobacco Use Status Never used Tobacco 12/17/24 17:05 e-Cigarette/Vaping Use Never Used 12/17/24 17:05 PHQ-9: PHQ-9 Score PHQ-9: Total score 0 12/21/24 02:34 Thrive Assessment: Date of Thrive Assessment Date Thrive assessed 12/17/24 12/17/24 17:05 Coding Level of Care Code New Pt New Pt Level 4 (06033) Patient Type New Diagnoses Health care maintenance Z00.00 Fibromyalgia M79.7 Perimenopausal symptom N95.1 Gastritis K29.70 Migraine without status migrainosus, not intractable, unspecified migraine type G43.909 Intractability: not intractable Migraine type: unspecified Status migrainosus presence: without status migrainosus Time Spent (min) 35 Comment Time spent on chart review, H&P, medication reconciliation, patient education and orders Assessment & Plan Assessment & Plan (1) Health care maintenance: Code(s): Z00.00 - Encounter for general adult medical examination without abnormal findings Plan: - Colonoscopy done 05/09 follow-up recommended in 5 years due to polyp found - Mammogram scheduled for next week - Pap smear completed recently (2) Fibromyalgia: Code(s): M79.7 - Fibromyalgia Category: Medical Plan: The patient was advised to increase calcium intake and was prescribed gabapentin, which she did not start due to insurance issues and personal preference. She manages her symptoms with increased magnesium and vitamin B intake, providing some relief. She will follow up with Rheumatology. Recommended discuss Duloxetine for treatment. (3) Perimenopausal symptom: Code(s): N95.1 - Menopausal and female climacteric states Category: Medical Plan: The patient experiences perimenopausal symptoms, including hot flashes and sleep disturbances, managed with lifestyle modifications such as increased hydration and magnesium supplementation. (4) Gastritis: Code(s): K29.70 - Gastritis, unspecified, without bleeding Category: Medical Plan: The patient reports worsening gastrointestinal issues, including nausea, bloating, and epigastric pain, associated with acidic and fatty foods. A proton pump inhibitor, Omeprazole was prescribed to manage gastritis, with a follow-up planned in six weeks to assess healing. Rx given for Zofran for nausea. (5) Migraine: Code(s): G43.909 - Migraine, unspecified, not intractable, without status migrainosus Category: Medical Qualifiers: Intractability: not intractable Migraine type: unspecified Status migrainosus presence: without status migrainosus Qualified Code(s): G43.909 - Migraine, unspecified, not intractable, without status migrainosus Plan: Controlled on Propranolol. Patient will continue current medications. Will monitor. Patient will follow up in 6 months. Plan I discussed with the patient the management of her fibromyalgia, including the option of duloxetine if symptoms worsen. We also reviewed her perimenopausal symptoms and the potential benefits of duloxetine for hot flashes and mood swings. For her gastrointestinal issues, I explained the likely diagnosis of gastritis and the plan to use a proton pump inhibitor for six weeks, with a follow-up to assess improvement. We also discussed the importance of avoiding acidic and fatty foods to prevent symptom exacerbation. Medications: New omeprazole 20 mg PO BID 120 caps 0RF gastritis ondansetron HCl 4 mg PO Q8H PRN 20 tabs 0RF nausea and vomiting Patient Instructions: - Take omeprazole twice daily for six weeks to manage gastritis. - Avoid acidic and fatty foods to prevent worsening of gastrointestinal symptoms. - Stay hydrated and continue magnesium supplementation to manage perimenopausal symptoms. - Follow up in six weeks for reassessment of gastrointestinal symptoms and physical examination.
== END 2024-12-17 17:32 | disposition home or self-care (01) ==
LOC: HO.HMCHD 16:55
PROVIDERS: PCP Internal Medicine; Visit Provider Physician Assistant Medical
DX: Z00.00 Encounter for general adult medical examination without abnormal findings (principal); M79.7 Fibromyalgia; N95.1 Menopausal and female climacteric states; K29.70 Gastritis, unspecified, without bleeding; G43.909 Migraine, unspecified, not intractable, without status migrainosus

== ENCOUNTER 2025-01-28 16:58 | Outpatient (AMB) | payer BC, SELFPAY ==
--- OUTSIDE RECORDS SUMMARY | 2023-10-04 10:20 | XMS_ITS ---
Author Organization [facility] Address [address] [place] [address] Care Team Providers Care Pre School Manager Name Role Phone Sumeet (RETIRED) Asif POOLE Primary Care Provide Victor Manuel Hernandez [phone] REASON FOR VISIT screening Encounters Encounter Location Date Provider Diagnosis [facility] Outpatient [address] [place] [id number] 10/04/2023 Victor Manuel Balderas Plan Of Treatment No Information Progress Notes * URI LOUISOB:[birth year] (49 yo F)Acc No.[id number]:10/04/2023 COLON WITH MAC Patient: CA CASTILLOABELLE Provider: Nikko Balderas MD :1975 A ge:47 Y S ex:Female Date:10/04/2023 Address:[address] [place], [place] [phone] Pcp:Asif Fay (RETIRED )MD Subjective: * Chief Complaints: * 1 . Screening. * Medical History: Objective: * Vitals: Assessment: Plan: * Treatment: * * The named appointment provid er may or may not be the originator of this progress note, and it is not deemed complete until electronically signed by the appointment provider. Sign off status: Pending * Provider: Nikko Balderas MD Date: 0 10/04/2023 Generated for Regan rosenthal/Sera/eTransmitting on: 1 07:46 PM EDT
--- OUTSIDE RECORDS SUMMARY | 2024-01-22 05:30 | XMS_ITS ---
Author Organization [facility] Address [address] [place] [address] Care Team Providers Care Gear Grinding Machine Operator Name Role Phone Sumeet (RETIRED) Asif POOLE Primary Care Provide Victor Manuel Hernandez [phone] REASON FOR VISIT colon screening Encounters Encounter Location Date Provider Diagnosis [facility] Outpatient [address] [place] [id number] 01/22/2024 Victor Manuel Balderas Plan Of Treatment No Information Progress Notes * URI LOUISOB:[birth year] (49 yo F)Acc No.[id number]:01/22/2024 COLON WITH MAC Patient: PAYAL CASTILLOLLE Provider: Nikko Balderas MD :1975 A ge:48 Y S ex:Female Date:01/22/2024 Address:[address] [place], [place] [phone] Pcp:Asif Fay (RETIRED )MD Subjective: * Chief Complaints: * 1 . Colon screening. * Medical History: Objective: * Vitals: Assessment: Plan: * Treatment: * * The named appointment provid er may or may not be the originator of this progress note, and it is not deemed complete until electronically signed by the appointment provider. Sign off status: Pending * Provider: Nikko Balderas MD Date: Generated for Regan rosenthal/Sera/eTransmitting on: 07:46 PM EDT
--- OUTSIDE RECORDS SUMMARY | 2024-05-13 03:30 | XMS_ITS ---
Author Organization [facility] Address [address] [place] [address] Care Team Providers Care Wide Area Network Systems Administrator Name Role Phone Sumeet (RETIRED) Asif POOLE Primary Care Provide Victor Manuel Hernandez [phone] REASON FOR VISIT COLON SCREENING Problems Problem Type SNOMED Code ICD Code Onset Dates Problem Status W/U Status Risk Notes Problem Diverticular disease of colon (254352332) Diverticulosis of large intestine without perforation or abscess without bleeding (K57.30) Active confirmed Encounters Encounter Location Date Provider Diagnosis [facility] [place] [address] [place] [phone] 05/13/2024 Victor Manuel Balderas Colon cancer scree [...] * URI LOUISOB:[birth year] (49 yo F)Acc No.[id number]:05/13/2024 COLON WITH MAC Patient: Mathieu NAZARIO CAYDEN Provider: Nikko Balderas MD :1975 A ge:48 Y S ex:Female Date:05/13/2024 Address:[address] [place], [place] [phone] Pcp:Asif Fay (RETIRED )MD Subjective: * Chief [...] Balderas MD Date: 0 05/13/2024 Generated for eRgan rosenthal/Sera/Sarahitting on: 07:47 PM EDT
[2025-01-28 14:19] VITALS: BP 124/80; PULSE 62; TEMP 36.6; O2SAT 97; BMI 51.1
--- NOTE | 2025-01-28 14:19 | A.OFFPC_ITS ---
Vital Signs 01/28/25 14:19 Height 5 ft 4 in Weight 298 lb BMI 51.1 BP 124/80 Blood Pressure Location Lt brachial Position Sitting Pulse 62 Pulse Source Pulse Oximeter Temp 97.9 F Temp Source Temporal Artery Scan Pulse Oximetry (%) 97 Oxygen Delivery Method Room Air Intake Visit Reasons: Annual exam - see comments Welder/Fitter Required: No Accompanied by: Self / Same As Patient Allergies penicillin G (Penicillin G) Allergy (Unknown, Verified 01/28/25 14:19) RASH penicillin V Allergy (Unknown, Verified 01/28/25 14:19) Rash levoquin Allergy (Uncoded 11/05/24 15:15) felt terrrible difficulty breathing Medication List - Last Reconciled 03/01/25 by KOKI Goodwin cholecalciferol (vitamin D3) 50 mcg PO DAILY magnesium oxide 300 mg PO DAILY omeprazole 20 mg PO BID 90 days ondansetron HCl 4 mg PO Q8H PRN propranolol ER 60 mg PO DAILY 90 days vitamin B complex 1 tab PO DAILY Tobacco use date assessed: 01/28/25 Dental Screening Dental Screen Date: 01/28/25 Did you have a dental visit in the last 12 months?: No Did you have a dental problem in the last 6 months where you did not have access to dental care?: No HPI HPI Comments History of Present Illness Details The patient is a 49-year-old female with JANIE, Migraine, Endometriosis, kidney stones, low vitamin D and fibromyalgia presenting with perimenopausal symptoms and management of chronic conditions. The patient reports experiencing perimenopausal symptoms, including disrupted sleep and night sweats, which have been intermittent and variable in severity. She has been managing these symptoms with magnesium and has been advised to consider vitamin E supplementation. The patient has a history of endometriosis and adenomyosis, which have been causing significant cramping and discomfort. She had an intrauterine device (IUD) placed in July, which initially helped, but she recently experienced severe cramping, similar to pre-IUD symptoms. The patient has been advised that a hysterectomy may be considered if symptoms persist. The patient has been diagnosed with fibromyalgia, which she reports has been somewhat alleviated by recent exercise, including weightlifting and split squats. She previously lost 60 pounds through exercise and has resumed her routi ne in the past four weeks. The patient reports worsening vision since her last eye exam, which was less than a year ago. She has been advised to schedule another appointment with her eye care provider. Medical History: - Endometriosis - Adenomyosis - Fibromyalgia Patient was informed and verbally consented to the use of an ambient scribe for clinic note documentation during this visit. [facility] Medical History (Updated 03/01/25 @ 01:42 by KOKI oGodwin) Arthritis Connective tissue disease Endometriosis Fibromyalgia Gastritis GERD (gastroesophageal reflux disease) Health care maintenance History of endometriosis HTN (hypertension) Insomnia Kidney stone Lipid screening Medication management Migraine Morbid obesity with BMI of 50.0-59.9, adult Obesity Ocular migraine Perimenopausal Perimenopausal symptom Surgical History History of cholecystectomy History of colonoscopy (~05/13/24) S/P right knee arthroscopy Family History (Updated 01/28/25 @ 17:13 by Aileen Aguila MA) Mother Kidney disease HTN (hypertension) Father No problems noted. 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 1. Little interest or pleasure in doing things: not at all 2. Feeling down, depressed, or hopeless: not at all 3. Trouble falling or staying asleep, or sleeping too much: not at all 4. Feeling tired or having little energy: not at all 5. Poor appetite or overeating: not at all 6. Feeling bad about yourself - or that you are a failure or have let yourself or your family down: not at all 7. Trouble concentrating on things, such as reading the newspaper or watching television: not at all 8. Moving or speaking so slowly that other people could have noticed. Or the opposite - being so fidgety or restless that you have been moving around a lot more than usual: not at all 9. Thoughts that you would be better off or of hurting yourself in some way: not at all Total score: 0 Depression Screening Interpretation: Negative Depression Screening Done: Yes Source: Developed by Drs. Victor Manuel Horne, Elio Hardwick and colleagues, with an educational candy from [employer]. Thrive Questionnaire Date Thrive assessed: 01/28/25 I am a: Patient Within the past 12 months, did the food you bought not last and you didn't have the money to get more?: Never true Within the past 12 months, did you worry whether your food would run out before you got money to buy more?: Never true Do you have trouble paying for medicines?: No Do you have trouble getting transportation to medical appointments?: No Do you have trouble paying your heating and electricity bill?: No Do you have trouble taking care of your child, family member or friend?: No Do you have trouble with day-to-day activities such as bathing, preparing meals, shopping, managing finances, etc.?: No Are you currently unemployed and looking for a job?: No Are you interested in more education?: No THRIVE Score: 0 AUDIT C Alcohol Use Questionnaire (AUDIT-C) 1. How often do you have a drink containing alcohol?: Never 3. How often do you have six or more drinks on one occasion?: Never Total Score: 0 ALICE-7 AMB Questionnaire ALICE-7 Date ALICE - 7 assessed: 01/28/25 Feeling nervous, anxious, or on edge: 0 = Not at all Not being able to stop or control worryin = Not at all Worrying too much about different things: 0 = Not at all Trouble relaxin = Not at all Being so restless that it is hard to sit still: 0 = Not at all Becoming easily annoyed or irritable: 0 = Not at all Feeling afraid as if something awful might happen: 0 = Not at all Total ALICE-7 score (0-4 normal; 5-9 mild; 10-14 moderate; 15-21 severe): 0 Source: Developed by Drs. Victor Manuel Horne, Elio Hardwick and colleagues, with an educational candy from [employer]. Review of Systems Const Details: - Gastrointestinal: Reports improvement in stomach symptoms with omeprazole - Endocrine: Reports perimenopausal symptoms including disrupted sleep and night sweats - Musculoskeletal: Reports soreness from exercise, improvement in fibromyalgia symptoms - Ophthalmologic: Reports worsening vision since last eye exam - Cardiovascular: Denies chest pain, palpitations, or syncope - Respiratory: Denies cough, dyspnea, or wheezing Physical exam (Primary Care) Vital Signs: Last Vital Signs Temp 97.9 F 01/28/25 14:19 Pulse 62 01/28/25 14:19 BP 124/80 01/28/25 14:19 Pulse Ox 97 01/28/25 14:19 Oxygen Delivery Method Room Air 01/28/25 14:19 BMI result Body Mass Index 51.1 GENERAL Well developed, obese, in no apparent distress HEENT Head-Normocephalic Eyes- PERRLA, EOMI, Conjuctiva clear, lids WNL Ears- Canals clear, TMs WNL Mouth/Throat-No lesions, no erythema, no exudate Neck- Supple, No lymphadenopathy, thyroid WNL RESPIRATORY Normal I:E, Clear to auscultation CARDIOVASCULAR Regular, rate and rhythm, No murmurs or rubs GASTROINTESTINAL Soft, nontender, normal bowel sounds, no masses MUSCULOSKELETAL Back- nontender Joints- no swelling or deformity NEUROLOGICAL Gait normal PSYCHIATRIC Oriented to person, place and time Mood and affect WNL Appearance WNL Speech WNL Thought processes WNL Tobacco/Smoking Status: Tobacco use Status Tobacco use date assessed 01/28/25 01/28/25 14:20 Patient Tobacco Use Status Never used Tobacco 01/28/25 14:20 e-Cigarette/Vaping Use Never Used 01/28/25 14:20 PHQ-9: PHQ-9 Score PHQ-9: Total score 0 01/28/25 17:15 Depression Screening Interpretation: Negative Thrive Assessment: Date of Thrive Assessment Date Thrive assessed 01/28/25 01/28/25 14:20 Coding Level of Care Code Established Pt Est Pt Level 4 (46575) Established Pt Complex EM visit Add On G2211 Patient Type Established Diagnoses Fibromyalgia M79.7 Gastroesophageal reflux disease without esophagitis K21.9 Esophagitis presence: without esophagitis Perimenopausal symptom N95.1 Endometriosis N80.9 Morbid obesity with BMI of 50.0-59.9, adult E66.01; Z68.43 Decreased visual acuity H54.7 Time Spent (min) 35 Comment Time spent on chart review, H&P, Patient education and orders Assessment & Plan Assessment & Plan (1) Fibromyalgia: Code(s): M79.7 - Fibromyalgia Category: Medical Plan: The patient is encouraged to continue her exercise regimen, which has been beneficial in alleviating symptoms. (2) GERD (gastroesophageal reflux disease): Code(s): K21.9 - Gastro-esophageal reflux disease without esophagitis Category: Medical Qualifiers: Esophagitis presence: without esophagitis Qualified Code(s): K21.9 - Gastro-esophageal reflux disease without esophagitis Plan: The patient will continue omeprazole for an additional two weeks, completing an eight-week course. If symptoms resolve, the medication will be discontinued. (3) Perimenopausal symptom: Code(s): N95.1 - Menopausal and female climacteric states Category: Medical Plan: The patient is advised to continue magnesium and consider vitamin E supplementation to manage symptoms. Follow-up is recommended if symptoms worsen. (4) Endometriosis: Code(s): N80.9 - Endometriosis, unspecified Category: Medical Plan: The patient is advised to monitor symptoms and consider a hysterectomy if severe cramping persists despite the IUD. Patient to follow up with INFORMATION SPECIALIST (5) Morbid obesity with BMI of 50.0-59.9, adult: Comment: BMI today was 51.2 Code(s): E66.01 - Morbid (severe) obesity due to excess calories; Z68.43 - Body mass index [BMI] 50.0-59.9, adult Category: Medical Plan: Discussed the health risks of obesity with the patient. Reviewed benefits of even moderate weight loss with the patient. Patient will gradually try and increase exercise to 30-40 min 5-7 times per week. We discussed they may need to break the exercise up into 2-3 sessions daily due to fibromyalgia. We discussed the patient adding more fruits and vegetables to their diet. Will monitor weight and follow up in 6 months. (6) Decreased visual acuity: Code(s): H54.7 - Unspecified visual loss Plan: The patient is advised to schedule an eye exam due to worsening vision. Plan During the visit, we discussed the continuation of omeprazole for gastroesophageal reflux disease and the potential discontinuation after eight weeks if symptoms resolve. We also reviewed management strategies for perimenopausal symptoms, including magnesium and vitamin E supplementation, and the possibility of further intervention if symptoms worsen. The patient was informed about the option of a hysterectomy for persistent endometriosis and adenomyosis symptoms despite the IUD. We emphasized the importance of exercise in managing fibromyalgia and advised scheduling an eye exam due to worsening vision. Orders: Orders Complete Blood Count no Diff 02/02/25 Z00.00 - Encounter for general adult medical examination without abnormal findings, Z79.899 - Other skilled nursing (current) drug therapy, Z13.220 - Encounter for screening for lipoid disorders Hemoglobin A1c 02/02/25 Z00.00 - Encounter for general adult medical e xamination without abnormal findings, Z79.899 - Other longshore equipment operator (current) drug therapy TSH reflex Free T4 02/02/25 Z13.220 - Encounter for screening for lipoid disorders, Z00.00 - Encounter for general adult medical examination without abnormal findings, Z79.899 - Other longshore equipment operator (current) drug therapy Comprehensive Met. Panel 02/02/25 Z13.220 - Encounter for screening for lipoid disorders, Z00.00 - Encounter for general adult medical examination without abnormal findings, Z79.899 - Other longshore equipment operator (current) drug therapy Vitamin D 25-OH Total 02/02/25 Z00.00 - Encounter for general adult medical examination without abnormal findings Lipid Panel 02/02/25 Z00.00 - Encounter for general adult medical examination without abnormal findings, Z79.899 - Other longshore equipment operator (current) drug therapy Patient Instructions: - Continue omeprazole for two more weeks and stop if symptoms improve. - Consider vitamin E supplementation for perimenopausal symptoms. - Monitor symptoms of endometriosis and adenomyosis and consider a hysterectomy if severe cramping persists. - Maintain exercise routine to help manage fibromyalgia symptoms. - Schedule an eye exam due to worsening vision.
--- OUTSIDE RECORDS SUMMARY | 2025-01-28 19:47 | XMS_ITS | Encounter Summary ---
Author Organization [facility] Address [address] [place] [address] Phone Care Team Providers Care Can Carrier Name Role Phone Asif Fay MD Primary Care Provider Encounter Details Date Type Department Care Team (Late st Contact Info) Description 08/10/2024 Procedure Pass OR Admitting Dept - Virtual Department [address] [place] [address] Social History Tobacco Use Types Packs/Day Years [...] as of this encounter Plan of Treatment Not on file documented as of this encounter Visit Diagnoses Not on filedocumented in this encounter Care Teams Can Carrier Relationship Specialty Start Date End Date Asif Fay MD [address] [place] [address] [place] [address] PCP - General Internal Medicine 10/13/18 documented as of this encounter Additional Source Comments The information contained in this document represents components of the legal health record. It is not the complete legal health record.[facility]
--- OUTSIDE RECORDS SUMMARY | 2025-01-28 19:47 | XMS_ITS | Encounter Summary ---
Author Organization [facility] Address [address] [place] [address] Phone Care Team Providers Care Plug Saw Operator Name Role Phone Asif Fay MD Primary Care Provider Encounter Details Date Type Department Care Team (Late st Contact Info) Description 07/30/2024 Procedure Pass OR Admitting Dept - Virtual Department [address] [place] [address] Social History Tobacco Use Types Packs/Day Years [...] on filedocumented in this encounter Care Teams Plug Saw Operator Relationship Specialty Start Date End Date Asif Fay MD [address] [place] [address] [place] [address] PCP - General Internal Medicine 10/13/18 documented as of this encounter Additional Source Comments The information contained in this document represents components of the legal health record. It is not the complete legal health record.[facility]
--- OUTSIDE RECORDS SUMMARY | 2025-01-28 19:47 | XMS_ITS | Encounter Summary ---
Author Organization [facility] Address [address] [place] [address] Phone Care Team Providers Care Petroleum Geologist Name Role Phone Asif Fay MD Primary Care Provider Encounter Details Date Type Department Care Team (Late st Contact Info) Description 04/17/2023 Procedure Pass [facility] - [address] [place] [address] Social History Tobacco Use Types Packs/Day Years [...] on filedocumented in this encounter Care Teams Petroleum Geologist Relationship Specialty Start Date End Date Asif Fay MD [address] [place] [address] [place] [address] PCP - General Internal Medicine 10/13/18 documented as of this encounter Additional Source Comments The information contained in this document represents components of the legal health record. It is not the complete legal health record.[facility]
--- OUTSIDE RECORDS SUMMARY | 2025-01-28 19:47 | XMS_ITS | Encounter Summary ---
Author Organization [facility] Address [address] [place] [address] Phone Care Team Providers Care Senior Staff Psychologist Name Role Phone Asif Fay MD Primary Care Provider Encounter Details Date Type Department Care Team (Late st Contact Info) Description 06/17/2024 Procedure Pass [facility] - [address] [place] [address] Social History Tobacco Use Types Packs/Day Years Used Date Smoking Tobacco: Never Smokeless Tobacco: Never Alcohol Use Standard Drinks/Week Comments Not Currently 0 (1 standard drink = 0.6 oz [...] on filedocumented in this encounter Care Teams Senior Staff Psychologist Relationship Specialty Start Date End Date Asif Fay MD [address] [place] [address] [place] [address] PCP - General Internal Medicine 10/13/18 documented as of this encounter Additional Source Comments The information contained in this document represents components of the legal health record. It is not the complete legal health record.[facility]
--- OUTSIDE RECORDS SUMMARY | 2025-01-28 19:47 | XMS_ITS | Encounter Summary ---
Author Organization [facility] Address [address] [place] [address] [place] [address] Phone Care Team Providers Care Bucket Turner Name Role Phone Asif Fay MD Primary Care Provider Encounter Details Date Type Department Care Team (Latest Contact Info) Description 04/17/2023 Transcribe Orders Virtual Department 30 [place] [address] Bartolome Lyons MD [address] [place] [address], [facility] [address] [place] [address] [email or web address] Breast screening (Primary Dx) Social History Tobacco [...] on file documented as of this encounter Results * [...] screening, unspecified Breast screening Breast screening, unspecified documented in this encounter Care Teams Bucket Turner Relationship Specialty Start Date End Date Asif Fay MD [address] [place] [address] [place] [address] PCP - General Internal Medicine 10/13/18 documented as of this encounter Additional Source Comments The information contained in this document represents components of the legal health record. It is not the complete legal health record.[facility]
--- OUTSIDE RECORDS SUMMARY | 2025-01-28 19:47 | XMS_ITS | Clinical Summary ---
Author Organization [facility] Address [address] [place] [address] Phone Care Team Providers Care Under Cutter Name Role Phone Asif Fay MD Primary [...] Encounters Date Type Department Care Team Description 12/28/2024 10:55 AM EDT - 12/28/2024 11:59 PM EDT Hospital Encounter [address] [place] [address] Asif Fay MD Discharge Disposition: Home or Self Care 12/23/2024 Procedure Pass [facility] PERIOPERATIVE DEPT [address] [place] [address] 12/07/2024 Telephone Minimally Invasive Gynecologic Surgery [address] [facility], 4th Floor, [address] [place] [address] Xuan Bills MD 12/02/2024 Telephone [facility] Gynecology [address] [facility], 4th Floor, [address] [place] [address] Xuan Bills MD Surgery Cancellation (Patient would like to cancel her surgery on 12/23 with ) 06/17/2024 Procedure Pass [address] [place] [address] from Last 3 Months Immunizations Immunization Administration [...] Not Answered Alcohol Use Standard Drinks/Week Comments Not Currently [...] 07/22/2024 1:53 PM EDT Plan of Treatment Health Maintenance Due Date Last Done Comments Adult Td,Tdap Booster 1975 LIPID PANEL 1975 DEPRESSION SCREENING 1987 HEPATITIS C SCREENING 12/05/1993 HIV ONE-TIME SCREENING (18-65 YEARS) 12/05/1993 SCREENING FOR DIABETES 12/05/2010 COLOGUARD 12/05/2020 COLONOSCOPY 12/05/2020 COLORECTAL CANCER SCREENING 12/05/2020 FIT TEST 12/05/2020 FOBT 12/05/2020 SIGMOIDOSCOPY 12/05/2020 VIRTUAL COLONOSCOPY 12/05/2020 INFLUENZA VACCINE (#1) 2024 COVID-19 VACCINE ( season) 2024 04/14/2022, 04/17/2021, 09/07/2020, Additional history exists MAMMOGRAM 12/28/2026 12/28/2024, 07/15, 08/22/2017 PAP SMEAR 02/23/2027 02/24/2024, 09/12/2018, 12/22/2018 IUD 08/10/2032 08/10/2024 SMOKING STATUS SCREENING (Once After 26 Yrs) Completed 12/28/2024 HEPATITIS A VACCINES Aged Out No long [...] this topic Medical Devices Implanted Type Area Group Director Device Identifier Shelf Expiration Date Model / Serial / Lot Device Contraceptive 52mg Iud Mirena - Must Order In Multiples Of 5 - [id number] Implanted:Qty: 1 on 08/10/2024 by Bartolome Lyons MD at [facility] N/A: Uterus [facility] 08/12/2026 [id number] / [id number] / [id number] Procedures Procedure Name Priority Date/Time Associated Diagnosis Comments BI MAMMOGRAM SCREENING WITH TOMOSYNTHESIS WITH CAD (BILATERAL) Routine 12/28/2024 11:15 AM EDT Visit for screening mammogram PAP TEST Routine 02/24/2024 12:00 AM EST from Last 3 Months or Most Recently Relevant to Health Maintenance Results * BI MAMMOGRAM SCREENING WITH TOMOSYNTHESIS WITH CAD (BILATERAL) (12/28/2024 11:15 AM EDT) Anatomical Region Laterality Modality Breast Left, Breast Right, Breast Bilateral Bila teral Mammography 12/28/2024 10:1 7 PM EDT Impressions 12/28/2024 10:18 PM EDT No mammographic evidence of malignancy in either breast. Annual screening mammography is recommended. BI-RADS 1 NEGATIVE The patient will be notified of the results and recommendations. Narrative 12/28/2024 10:18 PM EDT BI MAMMOGRAM SCREENING WITH TOMOSYNTHESIS WITH CAD (BILATERAL) Additional patient information: Screening. COMPARISON: Comparison is made with relevant prior imaging. Breast composition: The breasts are heterogeneously dense, which may obscure small masses. FINDINGS: No abnormal masses, suspicious calcifications, or other significant findings are identified mammographically in either breast. Asif Fay MD IMG MG EXAMS Final R esult * Pap Test (02/24/2024 12:00 AM EST) Report [address] [address] Note Specialist: Bernard Hirsch MD OUTSOLE CEMENTER Cytology Report FINAL DIAGNOSIS A. PAP SMEAR (THIN PREP) CE: SPECIMEN ADEQUACY: Satisfactory for evaluation; transformation zone present. INTERPRETATION: NEGATIVE FOR INTRAEPITHELIAL LESION OR MALIGNANCY. This specimen was analyzed by the automated ThinPrep Imaging System ([employer].) and the selected swanson were reviewed by a ciaio counter molder. Electronically Signed Out By: JESSICA Dhillon(ASCP) The [...] by real-time polymerase chain reaction (PCR) at [facility], [address] [place] [address] using the FDA-approved BD Onclarity9 HPV Assay with extended genotyping. Uses of the assay in scenarios other than those approved by the FDA should be considered off-label use. The accuracy and precision of this test for all other off-label specimen sources has been verified in the Cytopathology Laboratory of the [facility] and has not been cleared or approved [...] : 1975 (Age: 48) Sex: F [facility] Location: [facility] Date of Collection: 02/24/2024 Date of Reported: 02/28/2024 14:25 Results to: Bartolome Lyons MD, BS [facility] Final Diagnosis A. PAP SMEAR (THIN PREP) CE: SPECIMEN ADEQUACY: Satisfactory for evaluation; transformation zone present. INTERPRETATION: NEGATIVE FOR INTRAEPITHELIAL LESION OR MALIGNANCY. This specimen was analyzed by the automated ThinPrep Imaging System ([employer] and the selected swanson were reviewed by a ciaio counter molder. [facility] Results\Inter pretation A. PAP SMEAR (THIN PREP) CE: High-risk HPV Panel w/ extended genotyping NEG HPV 16-NEG HPV 18-NEG HPV 45-NEG HPV 33/58-NEG HPV 31-NEG HPV 56/59/66-NEG HPV 51-NEG HPV 52-NEG HPV 35/39/68-NEG Performed by real-time polymerase chain reaction (PCR) at [facility], [address] [place] [address] using the FDA-approved BD Onclarity HPV Assay with extended genotyping. Uses of the assay in scenarios other than those approved by the FDA should be considered off-label use. The accuracy and precision of this test for all other off-label specimen sources has been verified in the Cytopathology Laboratory of the [facility] and has not been cleared or approved by the U.S. Food and Drug Administration. Clinical correlation is advised. The assay assesses the E6/E7 DNA target and utilizes human beta globin as an internal control. Cytology and HPV testing are screening assays and should not be used as the sole means of detecting cancer. False-positives and false-negatives can occur. [facility] Conversion Type 02/24/2024 8:41 AM EST us Bartolome Lyons MD CYTOLOGY ORDERABLES Edited Re sult - Final [facility] [address] [place] [address] from Last 3 Months or Most Recently Relevant to Health Maintenance Insurance PPO EPO PPO EPO PPO EPO PPO EPO PPO EPO PPO EPO PPO EPO PPO EPO Member Subscriber Plan / Payer (Ef fective 2021-Present) Name:Cayden Little Relation to Subscriber:Spouse Name:OH LITTLE Date of :1964 (Home) Address: [address] [place] [address] Payer ID:[id number] (NAIC) Type:PPO Address: [address] [place] [address] Advance Directives For more information, please contact: [phone] (9AM - 5PM [facility], Saturday-Saturday) Documents on File Type Date Recorded Patient Universal Branch Consultant Expl anation Healthcare Proxy 08/10/2024 * Full Code (Latest Code Status on File) Date Activated Date Inactivated Comments 07/30/2024 12:15 PM Question Answer Comments Code Status Confirmed With: Patient Care Teams Under Cutter Relationship Specialty Start Date End Date Asif Fay MD [address] [place] [address] [place] [address] PCP - General Internal Medicine 10/13/18 Additional Source Comments The information contained in this document represents components of the legal health record. It is not the complete legal health record.[facility]
--- OUTSIDE RECORDS SUMMARY | 2025-01-28 19:47 | XMS_ITS | Encounter Summary ---
Author Organization [facility] Address [address] [place] [address] [place] [address] Phone Care Team Providers Care Office Clin Asst Name Role Phone Asif Fay MD Primary Care Provider Encounter Details Date Type Department Care Team (Late st Contact Info) Description 12/23/2024 Procedure Pass [facility] PERIOPERATIVE DEPT [address] [place] [phone] Social History Tobacco Use Types Packs/Day Years [...] on filedocumented in this encounter Care Teams Office Clin Asst Relationship Specialty Start Date End Date Asif Fay MD [address] [place] [address] [place] [address] PCP - General Internal Medicine 10/13/18 documented as of this encounter Additional Source Comments The information contained in this document represents components of the legal health record. It is not the complete legal health record.[facility]
--- OUTSIDE RECORDS SUMMARY | 2025-01-28 19:47 | XMS_ITS | Patient Health Record ---
Author Organization [facility] Address [address] [place] [address] Care Team Providers Care Child Care Team Lead Name Role Phone Sumeet (RETIRED) Asif POOLE Primary Care Provide Victor Manuel Hernandez [phone] Allergies Allergen (clinical drug ingredient) Drug/Non Drug Allergy documented on EMR Reaction Allergy Type Onset Date Status Penicillin Unknown Drug Allergy Active Levaquin Unknown Drug Allergy Active Results Component Value Reference Range Notes Ur Preg Test Reviewed date:05/13/2024 01:01:15 PM Interpretation: Performing Lab:[facility], [address] [place] [phone] Notes/Report: Urine NEGATIVE NEGATIVE This test was developed to detect early . False negative results may occur after the 5th - 7th week of when using this test method. If clinically indicated, consider a serum hCG. Pathology (Not yet reviewed by provider) Interpretation: Performing Lab:[facility], [address] [place] [phone] Notes/Report: Reason For Referral No Information Medications Medication SIG (Take, Route, Frequency, Duration) Notes Start Date End Date Status Benadryl Allergy 25 MG 1 tablet at bedti me as needed Orally Once a day Active Magnesium 300 MG 1 capsule with a maryjane l Orally Once a day; Duration: 30 day(s) Active Propranolol HCl ER 60 MG TAKE 1 CAPSULE BY MOUTH EVERY DAY Oral; Duration: 30 Active Immunizations Vaccine Route Administration Date [...] Negative Section Notes: Nonsmoker; no sig alcohol Nondenominational-does not accept blood products Problems Problem Type SNOMED Code ICD Code Onset Dates Problem Status W/U Status Risk Notes Problem Screening for malignant neoplasm of colon (118197748) Encounter for screening for malignant neoplasm of colon (Z12.11) Active confirmed Problem Diverticular disease of colon (279349044) Diverticulosis of large intestine without perforation or abscess without bleeding (K57.30) Active confirmed Problem Preprocedural examination (587889495514693) Preprocedural examination (Z01.818) Active confirmed Encounters Encounter Location Date Provider Diagnosis [facility] [address] [place] [id number] 05/13/2024 Victor Manuel Balderas Colon cancer scree [...] Insured Coverage Start Date Coverage End Date [facility] [address] [place] [address] [id number] [place] Self - patient is the insured Medical (General) History Medical History History ICD Code HTN Migraines Being tested for sleep apnea at the end of 07/2023 Denies CA,DM,CVA,Lung disease,renal dise ase Surgical History Surgery Date(Month/Year) CCY Right knee arthroscopy
--- OUTSIDE RECORDS SUMMARY | 2025-01-28 19:47 | XMS_ITS | Encounter Summary ---
Author Organization [facility] Address [address] [place] [address] Phone Care Team Providers Care Coding Analyst Name Role Phone Asif Fay MD Primary Care Provider Encounter Details Date Type Department Care Team (Late st Contact Info) Description 08/07/2023 Ancillary Orders [facility], [facility]- [address] [address] Asif Fay MD [address] [place] [address] [place] [address] Abnormal finding on mammography (Primary Dx) Social [...] or suspicious findings in the left breast. Asif Fay MD IMG MG EXAMS Final R esult documented in this encounter Visit Diagnoses Diagnosis Abnormal finding on mammography- Primary Abnormal finding on mammography documented in this encounter Care Teams Coding Analyst Relationship Specialty Start Date End Date Asif Fay MD [address] [place] [address] [place] [address] PCP - General Internal Medicine 10/13/18 documented as of this encounter Additional Source Comments The information contained in this document represents components of the legal health record. It is not the complete legal health record.[facility]
== END 2025-01-28 17:29 | disposition home or self-care (01) ==
LOC: HO.HMCHD 16:58
PROVIDERS: PCP Physician Assistant Medical; Visit Provider Physician Assistant Medical
DX: M79.7 Fibromyalgia (principal); K21.9 Gastro-esophageal reflux disease without esophagitis; N95.1 Menopausal and female climacteric states; N80.9 Endometriosis, unspecified; E66.01 Morbid (severe) obesity due to excess calories; Z68.43 Body mass index [BMI] 50.0-59.9, adult; H54.7 Unspecified visual loss

== ENCOUNTER 2025-02-02 13:39 | Outpatient (REF) | payer BC, SELFPAY ==
--- OUTSIDE RECORDS SUMMARY | 2023-10-04 10:20 | XMS_ITS ---
Author Organization [facility] Address [address] [place] [address] Care Team Providers Care Clinical Lab Clerk Name Role Phone Sumeet (RETIRED) Asif POOLE Primary Care Provide Victor Manuel Hernandez [phone] REASON FOR VISIT screening Encounters Encounter Location Date Provider Diagnosis [facility] [place] [address] [place] [id number] 10/04/2023 Victor Manuel Balderas Plan Of Treatment No Information Progress Notes * URI LOUISOB:[birth year] (49 yo F)Acc No.[id number]:10/04/2023 COLON WITH MAC Patient: CA CASTILLOABELLE Provider: Nikko Balderas MD :1975 A ge:47 Y S ex:Female Date:10/04/2023 Address:[address] [place], [place] [phone] Pcp:Asif Fay (RETIRED )MD Subjective: * Chief [...] 10/04/2023 Generated for Regan rosenthal/Sera/eTransmitting on: 1 05:59 PM EDT
--- OUTSIDE RECORDS SUMMARY | 2024-01-22 05:30 | XMS_ITS ---
Author Organization [facility] Address [address] [place] [address] Care Team Providers Care Yeast Pumper Name Role Phone Sumeet (RETIRED) Asif OPOLE Primary Care Provide Victor Manuel Hernandez [phone] REASON FOR VISIT colon screening Encounters Encounter Location Date Provider Diagnosis [facility] [place] [address] [place] [id number] 01/22/2024 Victor Manuel Balderas Plan Of Treatment No Information Progress Notes * URI LOUISOB:[birth year] (49 yo F)Acc No.[id number]:01/22/2024 COLON WITH MAC Patient: PAYAL CASTILLOLLE Provider: Nikko Balderas MD :1975 A ge:48 Y S ex:Female Date:01/22/2024 Address:[address] [place], [place] [id number] Pcp:Asif Fay (RETIRED )MD Subjective: * Chief [...] MD Date: Generated for Regan rosenthal/Sera/eTransmitting on: 05:59 PM EDT
--- OUTSIDE RECORDS SUMMARY | 2024-05-13 03:30 | XMS_ITS ---
Author Organization [facility] Address [address] [place] [address] Care Team Providers Care Heating And Ventilation Engineer Name Role Phone Sumeet (RETIRED) Asif POOLE Primary Care Provide Victor Manuel Hernandez [phone] REASON FOR VISIT COLON SCREENING Problems Problem Type SNOMED Code ICD Code Onset Dates Problem Status W/U Status Risk Notes Problem Diverticular disease of colon (507389717) Diverticulosis of large intestine without perforation or abscess without bleeding (K57.30) Active confirmed Encounters Encounter Location Date Provider Diagnosis [facility] [place] [address] [place] [phone] 05/13/2024 Victor Manuel Balderas Colon cancer scree bita Z12.11 ; Colon polyps K63.5 and Diverticulosis of large intestine without perforation or abscess without bleeding K57.30 Assessments Encounter Date Diagnosis (ICD Code) Assessment Notes Treatment Notes Treatment Clinical Notes Section Notes 05/13/2024 Colon cancer screening (ICD-10 - Z12.11) 05/13/2024 Colon polyps (ICD-10 - K63.5) 05/13/2024 Diverticulosis of large intestine without perforation or abscess without bleeding (ICD-10 - K57.30) Plan Of Treatment No Information Progress Notes * URI LOUISOB:[birth year] (49 yo F)Acc No.[id number]:05/13/2024 COLON WITH MAC Patient: Mathieu NAZARIO CAYDEN Provider: Nikko Balderas MD :1975 A ge:48 Y S ex:Female Date:05/13/2024 Address:[address] [place], [place] [phone] Pcp:Asif Fay (RETIRED )MD Subjective: * Chief Complaints: * 1 . COLON SCREENING. * Medical History: Objective: * Vitals: Assessment: * Assessment: 1. C olon cancer screening - Z12.11 (Primary) 2 . C olon polyps - K63.5? 3. D iverticulosis of large intestine without perforation or abscess without bleeding - K57.30 Plan: * Treatment: * Procedure Codes: 4 5380 COLONOSCOPY AND BIOPSY, Modifiers: PT * * The named appointment provid er may or may not be the originator of this progress note, and it is not deemed complete until electronically signed by the appointment provider. Sign off status: Pending * Provider: Nikko Balderas MD Date: 0 05/13/2024 Generated for Regan rosenthal/Sera/Sarahitting on: 06:00 PM EDT
[2025-02-02 14:57] LABS: Hematocrit 42.4 % (37.0-47.0); Hemoglobin 13.7 g/dl (12.0-16.0); Mean Corpuscular HGB Conc 32.3 g/dl (31.0-35.0); Mean Corpuscular Hemoglobin 29.4 pg (27.0-33.0); Mean Corpuscular Volume 91.0 fL (80.0-98.0); NRBC Abs Auto 0.000 X10*3/uL (0.0-0.012); NRBC Pct Auto 0.0 /100WBC (0.0-0.2); Platelet Count 288 X10*3/uL (160-400); Red Blood Count 4.66 X10*6/uL (4.20-5.50); White Blood Count 7.8 X10*3/uL (4.8-10.8)
[2025-02-02 17:09] LABS: Alanine Aminotransferase 30 U/L (0-31); Albumin Level 4.1 g/dL (3.5-5.0); Alkaline Phosphatase 62 U/L (39-117); Anion Gap 11 (12-20); Aspartate Amino Transferase 22 U/L (5-31); Blood Urea Nitrogen 12 mg/dL (9-16); Calcium 9.3 mg/dL (8.4-10.2); Carbon Dioxide 27 mmol/L (22-29); Chloride 105 mmol/L (96-108); Cholesterol 121 mg/dL (<200); Estimated Glomerular Filt Rate > 60; HDL Cholesterol 38 mg/dL (>40); Potassium 4.1 mmol/L (3.3-5.1); Sodium 139 mmol/L (135-145); Total Protein 7.4 g/dL (6.5-8.0); Triglycerides 72 mg/dL (<150)
--- OUTSIDE RECORDS SUMMARY | 2025-02-02 17:59 | XMS_ITS | Clinical Summary ---
Author Organization [facility] Address [address] [place] [address] Phone Care Team Providers Care Lidder Name Role Phone Asif Fay MD Primary [...] - 12/28/2024 11:59 PM EDT Hospital Encounter [address] [place] [address] Asif Fay MD Discharge Disposition: Home or Self Care 12/23/2024 Procedure Pass [facility] PERIOPERATIVE DEPT [address] [place] [address] 12/07/2024 Telephone Minimally Invasive Gynecologic Surgery [address] [facility], 4th Floor, [address] [place] [address] Xuan Bills MD 12/02/2024 Telephone [facility] Vincent Gynecology [address] [facility], 4th Floor, [address] [place] [address] Xuan Bills MD Surgery Cancellation (Patient would like to cancel her surgery on 12/23 with ) 06/17/2024 Procedure Pass [address] [place] [address] from Last 3 Months Immunizations Immunization Administration [...] this topic Medical Devices Implanted Type Area Tub Operator Device Identifier Shelf Expiration Date Model / Serial / Lot Device Contraceptive 52mg Iud Mirena - Must Order In Multiples Of 5 - [id number] Implanted:Qty: 1 on 08/10/2024 by Bartolome Lyons MD at [facility] N/A: Uterus [facility] 08/12/2026 [id number] / [id number] / [id number] Procedures Procedure Name Priority Date/Time Associated Diagnosis [...] Pap Test (02/24/2024 12:00 AM EST) Report [address] [address] Audit Officer: Bernard Hirsch MD POSTAL SERVICE WINDOW CLERK Cytology Report FINAL DIAGNOSIS A. PAP SMEAR (THIN PREP) CE: SPECIMEN ADEQUACY: Satisfactory for evaluation; transformation zone present. INTERPRETATION: NEGATIVE FOR INTRAEPITHELIAL LESION OR MALIGNANCY. This specimen was analyzed by the automated ThinPrep Imaging System ([employer] and the selected swanson were reviewed by a retail support associate. Electronically Signed Out By: JESSICA Dhillon(ASCP) The [...] by real-time polymerase chain reaction (PCR) at [facility], [address] [place] [address] using the FDA-approved BD Onclarity9 HPV Assay with extended genotyping. Uses of the assay in scenarios other than those approved by the FDA should be considered off-label use. The accuracy and precision of this test for all other off-label specimen sources has been verified in the Cytopathology Laboratory of the [facility] and has not been cleared or [...] : 1975 (Age: 48) Sex: F Institution: [facility] Location: [facility] Date of Collection: 02/24/2024 Date of Reported: 02/28/2024 14:25 Results to: Bartolome Lyons MD, BS [facility] Final Diagnosis A. PAP SMEAR (THIN PREP) CE: SPECIMEN ADEQUACY: Satisfactory for evaluation; transformation zone present. INTERPRETATION: NEGATIVE FOR INTRAEPITHELIAL LESION OR MALIGNANCY. This specimen was analyzed by the automated ThinPrep Imaging System ([employer] and the selected swanson were reviewed by a retail support associate. [facility] Results\Inter pretation A. PAP SMEAR (THIN PREP) CE: High-risk HPV Panel w/ extended genotyping NEG HPV 16-NEG HPV 18-NEG HPV 45-NEG HPV 33/58-NEG HPV 31-NEG HPV 56/59/66-NEG HPV 51-NEG HPV 52-NEG HPV 35/39/68-NEG Performed by real-time polymerase chain reaction (PCR) at [facility], [address] [place] [address] using the FDA-approved BD Onclarity HPV Assay with extended genotyping. Uses of the assay in scenarios other than those approved by the FDA should be considered off-label use. The accuracy and precision of this test for all other off-label specimen sources has been verified in the Cytopathology Laboratory of the [facility] and has not been cleared or approved by the U.S. Food and Drug Administration. Clinical correlation is advised. The assay assesses the E6/E7 DNA target and utilizes human beta globin as an internal control. Cytology and HPV testing are screening assays and should not be used as the sole means of detecting cancer. False-positives and false-negatives can occur. [facility] Conversion Type (Conversion Source) 02/24/2024 02/25/2024 8:41 AM EST us Bartolome Lyons MD CYTOLOGY ORDERABLES Edited Re sult - Final [facility] [address] [place] [address] from Last 3 Months or Most Recently Relevant to Health Maintenance Insurance PPO EPO PPO EPO PPO EPO PPO EPO PPO EPO PPO EPO PPO EPO PPO EPO PPO EPO Advance Directives For more information, please contact: [phone] (9AM - 5PM [facility], Saturday-Saturday) Documents on File Type Date Recorded Patient Marina Sales And Service Supervisor Expl anation Healthcare Proxy 08/10/2024 * Full Code (Latest Code Status on File) Date Activated Date Inactivated Comments 07/30/2024 12:15 PM Question Answer Comments Code Status Confirmed With: Patient Care Teams Lidder Relationship Specialty Start Date End Date Asif Fay MD [address] [place] [address] Dr [place], [place] [address] PCP - General Internal Medicine 10/13/18 Additional Source Comments The information contained in this document represents components of the legal health record. It is not the complete legal health record.[facility]
--- OUTSIDE RECORDS SUMMARY | 2025-02-02 17:59 | XMS_ITS | Encounter Summary ---
Author Organization [facility] Address [address] [place] [phone] Phone Care Team Providers Care Senior Etl Developer Name Role Phone Asif Fay MD Primary Care Provider Encounter Details Date Type Department Care Team (Late st Contact Info) Description 04/17/2023 Procedure Pass [facility] - [address] [place] [address] Social History Tobacco Use Types Packs/Day Years [...] filedocumented in this encounter Care Teams Senior Etl Developer Relationship Specialty Start Date End Date Asif aFy MD [address] [place] [address] [place] [address] PCP - General Internal Medicine 10/13/18 documented as of this encounter Additional Source Comments The information contained in this document represents components of the legal health record. It is not the complete legal health record.[facility]
--- OUTSIDE RECORDS SUMMARY | 2025-02-02 17:59 | XMS_ITS | Encounter Summary ---
Author Organization [facility] Address [address] [place] [address] [place] [address] Phone Care Team Providers Care Shearing Machine Operator Name Role Phone Asif Fay MD Primary Care Provider Encounter Details Date Type Department Care Team (Latest Contact Info) Description 04/17/2023 Transcribe Orders Virtual Department [address] [place] [address] Bartolome [place] MD [address] [place] [address], [facility] [address] [place] [address] [email or web address] Breast screening (Primary Dx) Social History [...] unspecified documented in this encounter Care Teams Shearing Machine Operator Relationship Specialty Start Date End Date Asif Fay MD [address] [place] [address] [place] [address] PCP - General Internal Medicine 10/13/18 documented as of this encounter Additional Source Comments The information contained in this document represents components of the legal health record. It is not the complete legal health record.[facility]
--- OUTSIDE RECORDS SUMMARY | 2025-02-02 18:00 | XMS_ITS | Encounter Summary ---
Author Organization [facility] Address [address] [place] [address] Phone Care Team Providers Care Systems Tester Name Role Phone Asif Fay MD Primary Care Provider Encounter Details Date Type Department Care Team (Late st Contact Info) Description 07/30/2024 Procedure Pass OR Admitting Dept - Virtual Department [address] [place] [address] Social History Tobacco Use Types Packs/Day Years [...] on filedocumented in this encounter Care Teams Systems Tester Relationship Specialty Start Date End Date Asif Fay MD [address] [place] [address] [place] [address] PCP - General Internal Medicine 10/13/18 documented as of this encounter Additional Source Comments The information contained in this document represents components of the legal health record. It is not the complete legal health record.[facility]
--- OUTSIDE RECORDS SUMMARY | 2025-02-02 18:00 | XMS_ITS | Patient Health Record ---
Author Organization [facility] Address [address] [place] [address] Care Team Providers Care Concrete Handler Name Role Phone Sumeet (RETIRED) Asif POOLE Primary Care Provide Victor Manuel Hernandez [phone] Allergies Allergen (clinical drug ingredient) Drug/Non Drug Allergy documented on EMR Reaction Allergy Type Onset Date Status Penicillin Unknown Drug Allergy Active Levaquin Unknown Drug Allergy Active Results Component Value Reference Range Notes Ur Preg Test Reviewed date:05/13/2024 01:01:15 PM Interpretation: Performing Lab:[facility], [address] [place] [phone] Notes/Report: Urine NEGATIVE NEGATIVE This test was developed to detect early . False negative results may occur after the 5th - 7th week of when using this test method. If clinically indicated, consider a serum hCG. Pathology (Not yet reviewed by provider) Interpretation: Performing Lab:[facility], [address] [place] [id number] Notes/Report: Reason For Referral No Information Medications [...] Negative Section Notes: Nonsmoker; no sig alcohol Anabaptism-does not accept blood products Problems Problem Type SNOMED Code ICD Code Onset Dates Problem Status W/U Status Risk Notes Problem Screening for malignant neoplasm of colon (302222024) Encounter for screening for malignant neoplasm of colon (Z12.11) Active confirmed Problem Diverticular disease of colon (852239296) Diverticulosis of large intestine without perforation or abscess without bleeding (K57.30) Active confirmed Problem Preprocedural examination (478578025577068) Preprocedural examination (Z01.818) Active confirmed Encounters Encounter Location Date Provider Diagnosis [facility] Outpatient [address] [place] [phone] 05/13/2024 Victor Manuel Balderas Colon cancer scree [...] Insured Coverage Start Date Coverage End Date [facility] [id number] [place] [address] [phone] [id number] CAYDEN L[place]IS Self - patient is the insured Medical (General) History Medical History History ICD Code HTN Migraines Being tested for sleep apnea at the end of 07/2023 Denies GA,DM,CVA,Lung disease,renal dise ase Surgical History Surgery Date(Month/Year) [facility]Y Right knee arthroscopy
--- OUTSIDE RECORDS SUMMARY | 2025-02-02 18:00 | XMS_ITS | Encounter Summary ---
Author Organization [facility] Address [address] [place] [address] [place] [phone] Phone Care Team Providers Care Armored Car Driver Name Role Phone Asif Fay MD Primary Care Provider Encounter Details Date Type Department Care Team (Late st Contact Info) Description 12/23/2024 Procedure Pass [facility] PERIOPERATIVE DEPT [address] [place] [phone] Social History Tobacco Use Types Packs/Day [...] on filedocumented in this encounter Care Teams Armored Car Driver Relationship Specialty Start Date End Date Asif Fay MD [address] [place] [address] [place] [address] PCP - General Internal Medicine 10/13/18 documented as of this encounter Additional Source Comments The information contained in this document represents components of the legal health record. It is not the complete legal health record.[facility]
--- OUTSIDE RECORDS SUMMARY | 2025-02-02 18:00 | XMS_ITS | Encounter Summary ---
Author Organization [facility] Address [address] [place] [address] Phone Care Team Providers Care Enterprise Business Architect Name Role Phone Asif Fay MD Primary Care Provider Encounter Details Date Type Department Care Team (Late st Contact Info) Description 08/10/2024 Procedure Pass [place] Admitting Dept - Virtual Department [address] [place] [address] Social History Tobacco Use Types Packs/Day Years [...] on filedocumented in this encounter Care Teams Enterprise Business Architect Relationship Specialty Start Date End Date Asif Fay MD [address] [place] [address] [place] [address] PCP - General Internal Medicine 10/13/18 documented as of this encounter Additional Source Comments The information contained in this document represents components of the legal health record. It is not the complete legal health record.[facility]
--- OUTSIDE RECORDS SUMMARY | 2025-02-02 18:00 | XMS_ITS | Encounter Summary ---
Author Organization [facility] Address [address] [place] [address] Phone Care Team Providers Care Automotive Hardware Engineer Name Role Phone Asif Fay MD Primary Care Provider Encounter Details Date Type Department Care Team (Late st Contact Info) Description 08/07/2023 Ancillary Orders [facility], [facility]- [address] [address] Asif Fay MD [address] [place] [address] [place] [address] Abnormal finding on mammography (Primary Dx) Social [...] mammography documented in this encounter Care Teams Automotive Hardware Engineer Relationship Specialty Start Date End Date Asif Fay MD [address] [place] [address] [place] [address] PCP - General Internal Medicine 10/13/18 documented as of this encounter Additional Source Comments The information contained in this document represents components of the legal health record. It is not the complete legal health record.[facility]
--- OUTSIDE RECORDS SUMMARY | 2025-02-02 18:00 | XMS_ITS | Encounter Summary ---
Author Organization [facility] Address [address] [place] [address] Phone Care Team Providers Care Shank Turner Name Role Phone Asif Fay MD Primary Care Provider Encounter Details Date Type Department Care Team (Late st Contact Info) Description 06/17/2024 Procedure Pass [facility] - [address] [place] [address] Social History Tobacco Use Types Packs/Day Years [...] on filedocumented in this encounter Care Teams Shank Turner Relationship Specialty Start Date End Date Asif Fay MD [address] [place] [address] [place] [address] PCP - General Internal Medicine 10/13/18 documented as of this encounter Additional Source Comments The information contained in this document represents components of the legal health record. It is not the complete legal health record.[facility]
== END 2025-02-02 13:40 | disposition home or self-care (01) ==
LOC: HO.LAB 13:39
PROVIDERS: PCP Physician Assistant Medical; Visit Provider Physician Assistant Medical
DX: Z00.00 Encounter for general adult medical examination without abnormal findings (principal); Z79.899 Other long term (current) drug therapy; Z13.220 Encounter for screening for lipoid disorders
CPT/HCPCS: 36415; 80053; 80061; 82306; 83036; 84443; 85027